=== PATIENT | female | born 1985 | race Hispanic/Latino ===

== ENCOUNTER 2017-06-25 11:15 | Emergency (ER) | payer MEDICAID, OTHER ==
[~2017-06-25 11:15] MED LIST: PNV91TAB6 PO
[2017-06-25] MEDS ORDERED: ACETAMINOPHEN EXTRA STRENGTH 500 MG TABLET ONE (11:34)
[2017-06-25 12:42] LABS: APPEARANCE,URINE Cloudy (CLEAR); BILIRUBIN,URINE Negative (NEGATIVE); COLOR,URINE Yellow (YELLOW); GLUCOSE, URINE (UA) Negative (NEGATIVE); KETONES,URINE Trace mg/dL (NEGATIVE); LEUKOCYTE ESTERASE ,URINE Large (NEGATIVE); NITRATE,URINE Positive (NEGATIVE); OCCULT BLOOD,URINE Small (NEGATIVE); PH,URINE 5.5 (5.0-8.0); PROTEIN,URINE POS 1+ (NEGATIVE); UROBILINOGEN,URINE 0.2 mg/dL (0.2-1.0)
[2017-06-25 12:44] LABS: HCG,QUAL RESULT NEGATIVE (NEGATIVE)
[2017-06-25 12:49] LABS: BACTERIA,URINE Few /HPF (None Seen); SQUAMOUS EPITHELIAL CELL,UR Rare /LPF (0-2); WBC,URINE TNTC /HPF (0-1)
[2017-06-25] MEDS ORDERED: CEPHALEXIN 500 MG CAPSULE ONE (12:53)
== END 2017-06-25 13:30 | disposition home or self-care (01) ==
LOC: EDH 11:15
DX: N39.0 Urinary tract infection, site not specified (principal); Z87.442 Personal history of urinary calculi; V49.59XA Passenger injured in collision with other motor vehicles in traffic accident, initial encounter; Y93.89 Activity, other specified; Y92.89 Other specified places as the place of occurrence of the external cause; Y99.8 Other external cause status
CPT/HCPCS: 81001; 81025; 87088; 87186

== ENCOUNTER 2017-07-11 17:59 | Emergency (ER) | payer MEDICAID, OTHER ==
[2017-07-11 18:32] LABS: APPEARANCE,URINE CLOUDY (CLEAR); BILIRUBIN,URINE NEGATIVE (NEGATIVE); COLOR,URINE YELLOW (YELLOW); GLUCOSE, URINE (UA) NEGATIVE (NEGATIVE); KETONES,URINE NEGATIVE (NEGATIVE); LEUKOCYTE ESTERASE ,URINE LARGE (NEGATIVE); NITRATE,URINE NEGATIVE (NEGATIVE); OCCULT BLOOD,URINE SMALL (NEGATIVE); PROTEIN,URINE TRACE (NEGATIVE); UROBILINOGEN,URINE 0.2 mg/dL (0.2-1.0)
[2017-07-11 18:40] LABS: BACTERIA,URINE Few /HPF (None Seen); SQUAMOUS EPITHELIAL CELL,UR Few /HPF (0-2); WBC,URINE 26-50 /HPF (0-1)
[2017-07-11 20:11] LABS: BASOPHILS % (AUTO) 0.9 % (0.0-5.0); EOSINOPHILS % (AUTO) 5.2 % (0.0-8.0); HEMATOCRIT 43.7 % (36-48); LYMPHOCYTES % (AUTO) 25.3 % (21.0-51.0); MEAN CORPUSCULAR HEMOGLOBIN 30.6 pg (27.0-33.0); MEAN CORPUSCULAR HGB CONC 34.6 g/dL (32.0-36.0); MEAN CORPUSCULAR VOLUME 88.3 fL (79-99); MONOCYTES % (AUTO) 7.2 % (3.0-13.0); NEUTROPHILS % (AUTO) 61.4 % (40.0-77.0); PLATELET COUNT (AUTO) 276 K/uL (130-400); RED BLOOD CELL COUNT(AUTO) 4.95 MIL/uL (4.00-5.50); RED CELL DISTRIBUTION WIDTH 14.7 % (11.0-15.5); WHITE BLOOD COUNT (AUTO) 9.9 K/uL (4.8-10.8)
[2017-07-11 20:20] LABS: CREATININE 0.9 mg/dL (0.5-1.5); POTASSIUM 3.9 mmol/L (3.5-5.1)
[2017-07-11 20:24] LABS: ALBUMIN 4.1 g/dL (3.5-5.0); BILIRUBIN,DIRECT 0.1 mg/dL (0.0-0.3); BILIRUBIN,TOTAL 0.4 mg/dL (0.2-1.0); TOTAL PROTEIN, SERUM 8.8 g/dL (6.0-8.3)
== END 2017-07-11 21:33 | disposition home or self-care (01) ==
LOC: EDH 17:59
DX: T83.84XA Pain due to genitourinary prosthetic devices, implants and grafts, initial encounter (principal); Z87.442 Personal history of urinary calculi
CPT/HCPCS: 36415; 80048; 80076; 81001; 81025; 83690; 85025

== ENCOUNTER 2017-07-14 16:48 | Emergency (ER) | payer MEDICAID, OTHER ==
[2017-07-14 17:55] LABS: BASOPHILS % (AUTO) 0.8 % (0.0-5.0); EOSINOPHILS % (AUTO) 3.9 % (0.0-8.0); HEMATOCRIT 38.5 % (36-48); LYMPHOCYTES % (AUTO) 23.4 % (21.0-51.0); MEAN CORPUSCULAR HEMOGLOBIN 30.6 pg (27.0-33.0); MEAN CORPUSCULAR VOLUME 87.2 fL (79-99); MONOCYTES % (AUTO) 7.5 % (3.0-13.0); NEUTROPHILS % (AUTO) 64.4 % (40.0-77.0); NUCLEATED RED BLOOD CELLS 0.1 % (0.0-0.19); PLATELET COUNT (AUTO) 249 K/uL (130-400); RED BLOOD CELL COUNT(AUTO) 4.42 MIL/uL (4.00-5.50); RED CELL DISTRIBUTION WIDTH 14.6 % (11.0-15.5); WHITE BLOOD COUNT (AUTO) 8.4 K/uL (4.8-10.8)
[2017-07-14 18:03] LABS: APPEARANCE,URINE CLOUDY (CLEAR); BILIRUBIN,URINE NEGATIVE (NEGATIVE); COLOR,URINE YELLOW (YELLOW); GLUCOSE, URINE (UA) NEGATIVE (NEGATIVE); KETONES,URINE NEGATIVE (NEGATIVE); LEUKOCYTE ESTERASE ,URINE LARGE (NEGATIVE); NITRATE,URINE NEGATIVE (NEGATIVE); OCCULT BLOOD,URINE MODERATE (NEGATIVE); PROTEIN,URINE 100 (NEGATIVE); UROBILINOGEN,URINE 0.2 mg/dL (0.2-1.0)
[2017-07-14 18:03] LABS: CREATININE 0.9 mg/dL (0.5-1.5); POTASSIUM 3.8 mmol/L (3.5-5.1)
[2017-07-14 18:28] LABS: BACTERIA,URINE Moderate /HPF (None Seen)
[2017-07-14 18:29] LABS: AMORPHOUS SEDIMENT,UR Few /LPF (None Seen); SQUAMOUS EPITHELIAL CELL,UR Rare /HPF (0-2)
== END 2017-07-14 20:44 | disposition home or self-care (01) ==
LOC: EDH 16:48
DX: T83.84XA Pain due to genitourinary prosthetic devices, implants and grafts, initial encounter (principal); N30.90 Cystitis, unspecified without hematuria; Z87.442 Personal history of urinary calculi; Z90.49 Acquired absence of other specified parts of digestive tract; Z98.890 Other specified postprocedural states
CPT/HCPCS: 36415; 74176; 80048; 81001; 81025; 85025

== ENCOUNTER 2017-08-29 19:24 | Emergency (ER) | payer MEDICAID, OTHER | END 2017-08-29 21:16 | disposition home or self-care (01) | LOC: EDH 19:24 | DX: Z43.6 Encounter for attention to other artificial openings of urinary tract (principal); Z87.442 Personal history of urinary calculi; Z90.49 Acquired absence of other specified parts of digestive tract | CPT/HCPCS: 99281 ==

== ENCOUNTER 2018-02-20 08:06 | Emergency (ER) | payer OTHER ==
[2018-02-20 09:02] LABS: APPEARANCE,URINE TURBID (CLEAR); BILIRUBIN,URINE NEGATIVE (NEGATIVE); COLOR,URINE YELLOW (YELLOW); GLUCOSE, URINE (UA) NEGATIVE (NEGATIVE); KETONES,URINE NEGATIVE (NEGATIVE); LEUKOCYTE ESTERASE ,URINE MODERATE (NEGATIVE); NITRATE,URINE POSITIVE (NEGATIVE); OCCULT BLOOD,URINE LARGE (NEGATIVE); PROTEIN,URINE >=300 (NEGATIVE); UROBILINOGEN,URINE 0.2 mg/dL (0.2-1.0)
[2018-02-20 09:10] LABS: AMPHET/METH SCREEN,URINE NEGATIVE (NEGATIVE); BARBITURATE SCREEN, URINE NEGATIVE (NEGATIVE); BENZODIAZEPINES SCREEN,URINE NEGATIVE (NEGATIVE); CANNABINOID SCREEN,URINE POSITIVE (NEGATIVE); COCAINE SCREEN,URINE NEGATIVE (NEGATIVE); OPIATE SCREEN,URINE NEGATIVE (NEGATIVE); PHENCYCLIDINE SCREEN,URINE NEGATIVE (NEGATIVE)
[2018-02-20 09:17] LABS: BACTERIA,URINE Moderate /HPF (None Seen); SQUAMOUS EPITHELIAL CELL,UR Rare /HPF (0-2); WBC,URINE TNTC /HPF (0-1)
[2018-02-20 09:19] LABS: HCG,QUAL RESULT NEGATIVE (NEGATIVE)
== END 2018-02-20 09:40 | disposition home or self-care (01) ==
LOC: EDH 08:06
DX: N39.0 Urinary tract infection, site not specified (principal); F12.10 Cannabis abuse, uncomplicated; Z87.442 Personal history of urinary calculi
CPT/HCPCS: 80305; 81001; 81025

== ENCOUNTER 2018-05-25 13:19 | Inpatient (IN) | payer MEDICAID, OTHER ==
[~2018-05-25] VITALS: Ht 154.9 cm; Wt 73.9 kg
[2018-05-25] MEDS ORDERED: ONDANSETRON HCL 4 MG/2 ML VIAL ONE (15:24)
[2018-05-25] MEDS ORDERED: SODIUM CHLORIDE 0.9% 1000ML 1,000 ML IV ONE (15:24)
[2018-05-25] MEDS ORDERED: KETOROLAC TROMETHAMINE 30MG/ML ONE (15:24)
[2018-05-25 15:26] LABS: BILIRUBIN,URINE Small (NEGATIVE); COLOR,URINE Dark Yellow (YELLOW); GLUCOSE, URINE (UA) Negative (NEGATIVE); KETONES,URINE 15 mg/dL (NEGATIVE); LEUKOCYTE ESTERASE ,URINE Large (NEGATIVE); NITRATE,URINE Negative (NEGATIVE); OCCULT BLOOD,URINE Nonhemolyzed Trace (NEGATIVE); PH,URINE 6.5 (5.0-8.0); PROTEIN,URINE POS 1+ (NEGATIVE)
[2018-05-25 15:26] LABS: BASOPHILS % (AUTO) 0.4 % (0.0-5.0); EOSINOPHILS % (AUTO) 0.5 % (0.0-8.0); HEMATOCRIT 39.2 % (36-48); LYMPHOCYTES % (AUTO) 6.6 % (21.0-51.0); MEAN CORPUSCULAR HEMOGLOBIN 29.7 pg (27.0-33.0); MEAN CORPUSCULAR HGB CONC 33.5 g/dL (32.0-36.0); MEAN CORPUSCULAR VOLUME 88.5 fL (79-99); MONOCYTES % (AUTO) 7.6 % (3.0-13.0); NEUTROPHILS % (AUTO) 84.9 % (40.0-77.0); PLATELET COUNT (AUTO) 310 K/uL (130-400); RED BLOOD CELL COUNT(AUTO) 4.43 MIL/uL (4.00-5.50); RED CELL DISTRIBUTION WIDTH 13.4 % (11.0-15.5); WHITE BLOOD COUNT (AUTO) 12.8 K/uL (4.8-10.8)
[2018-05-25 15:33] LABS: APPEARANCE,URINE SLIGHTLY CLOUDY (CLEAR); HCG,QUAL RESULT NEGATIVE (NEGATIVE)
[2018-05-25 15:48] LABS: CREATININE 0.8 mg/dL (0.5-1.5); POTASSIUM 3.9 mmol/L (3.5-5.1)
[2018-05-25 15:52] LABS: BACTERIA,URINE Few /HPF (None Seen)
[2018-05-25 15:53] LABS: SQUAMOUS EPITHELIAL CELL,UR Few /HPF (0-2)
[2018-05-25 15:56] LABS: ALBUMIN 3.6 g/dL (3.5-5.0); BILIRUBIN,TOTAL 0.5 mg/dL (0.2-1.0); TOTAL PROTEIN, SERUM 8.8 g/dL (6.0-8.3)
[2018-05-25] MEDS ORDERED: ZOSYN 3.375GM+NS 50ML 50 ML IV ONE (17:01)
[2018-05-25] MEDS ORDERED: SODIUM CHLORIDE 0.9% 100 ML IV ONE (17:02)
[2018-05-25] MEDS ORDERED: CEFTRIAXONE SODIUM 1 GM ONE (17:02)
[2018-05-25 18:28] VITALS: BP 118/78
[2018-05-25 20:00] VITALS: BP 128/76
[2018-05-25] MEDS: LEVOFLOXACIN 750 MG/D5W 150 ML 150 ML IV SCH (20:51)
[2018-05-25 23:48] VITALS: BP 108/60
[2018-05-26 04:00] VITALS: BP 110/63
[2018-05-26] MEDS: HYDROMORPHONE 1 MG/1 ML AMP IVP PRN ×3 (04:20→20:32)
[2018-05-26 05:52] LABS: HEMATOCRIT 33.3 % (36-48); MEAN CORPUSCULAR HEMOGLOBIN 30.1 pg (27.0-33.0); MEAN CORPUSCULAR HGB CONC 33.7 g/dL (32.0-36.0); MEAN CORPUSCULAR VOLUME 89.3 fL (79-99); PLATELET COUNT (AUTO) 265 K/uL (130-400); RED BLOOD CELL COUNT(AUTO) 3.73 MIL/uL (4.00-5.50); RED CELL DISTRIBUTION WIDTH 13.7 % (11.0-15.5); WHITE BLOOD COUNT (AUTO) 6.3 K/uL (4.8-10.8)
[2018-05-26 06:14] LABS: CREATININE 0.8 mg/dL (0.5-1.5); POTASSIUM 3.7 mmol/L (3.5-5.1)
[2018-05-26 07:35] LABS: EOSINOPHILS % (MANUAL) 2 % (1-6); LYMPHOCYTES % (MANUAL) 12 % (22-44); MONOCYTES % (MANUAL) 9 % (2-9); SEGMENTED NEUTROPHILS % 77 % (40-70)
[2018-05-26 07:38] LABS: MAN.DIFF COMMENT-IMPRESSION MANUAL DIFFERENTIAL; PLATELET MORPHOLOGY COMMENT ADEQUATE
[2018-05-26 08:29] VITALS: BP 90/58
--- NOTE | 2018-05-26 10:00 | NUR ---
CALLED DR. FIELDS'S OFFICE. SPOKE TO GRICEL, WHO IS GOING TO PAGE DR. FIELDS . WAITING FOR DR. FIELDS TO CALL BACK.
[2018-05-26 11:46] VITALS: BP 120/76
[2018-05-26] MEDS: ONDANSETRON HCL 4 MG/2 ML VIAL IVP PRN (13:20)
--- NOTE | 2018-05-26 15:00 | NUR ---
TRANSFER FROM [facility] RECEIVED PT BY WHEELCHAIR FROM 4TH FLOOR IN STABLE CONDITION. PT ASSISTED INTO BED. PT HAD NO COMPLAINTS AT THIS TIME. WILL MONITOR THROUGHOUT REMAINDER OF SHIFT.
[2018-05-26] MEDS: SODIUM CHLORIDE 0.9% 1000ML 1,000 ML IV SCH (15:07)
[2018-05-26 15:14] VITALS: BP 114/78
--- NOTE | 2018-05-26 18:45 | NUR ---
PHYSICIAN ROUNDING DR. FIELDS AT BEDSIDE TO ASSESS AND TALK TO PT. NEW ORDERS RECEIVED.
[2018-05-26 19:25] VITALS: BP 109/70
--- NOTE | 2018-05-26 20:35 | NUR ---
Urine; Urine has a strong odor colored pale yellow cloudy thick slimy urine.
[2018-05-26] MEDS: LEVOFLOXACIN 750 MG/D5W 150 ML 150 ML IV SCH (21:25)
[2018-05-26 23:37] VITALS: BP 101/63
[2018-05-27] VITALS (10 sets, daily range): BP systolic 102–139; BP diastolic 53–83
[2018-05-27] MEDS: ONDANSETRON HCL 4 MG/2 ML VIAL IVP PRN ×4 (01:05→19:28)
[2018-05-27] MEDS: HYDROMORPHONE 1 MG/1 ML AMP IVP PRN ×4 (01:09→19:29)
--- NOTE | 2018-05-27 01:09 | NUR ---
Patient: Patient claimed, I felt so nauseated and my pain started again at my right side flank area. Zofran 4 mg SIVP and Dilaudid 1 mg SIVP given PRN for nausea and pain.
[2018-05-27 07:46] LABS: INR 1.07 (0.85-1.15); PROTHROMBIN TIME 11.2 SEC (9.6-11.6)
[2018-05-27] MEDS ORDERED: MIDAZOLAM HCL 1 MG/ML 2ML VIAL ONE (09:34)
[2018-05-27] MEDS ORDERED: IODIXANOL 320 MG/ML 100 ML VIAL ONE (09:34)
[2018-05-27] MEDS ORDERED: LIDOCAINE HCL 1% MDV 50ML VIAL ONE (09:35)
[2018-05-27] MEDS ORDERED: FENTANYL CITRATE PF 50 MCG/1 ML 2ML VIAL ONE (09:35)
--- NOTE | 2018-05-27 09:50 | NUR ---
PT TRANSFERRED TO IR FOR RIGHT NEPHROSTOMY TUBE PLACEMENT.
--- NOTE | 2018-05-27 10:28 | NUR ---
DC PLAN VISITED WITH PATIENT. PATIENT LIVES ALONE. INDEPENDENT ABLE TO PERFORM ADL'S. PATIENT HAS NO SERVICES OR DME'S. FEELS SAFE TO RETURN HOME. Addendum: 05/28/18 at 1029 by FLORIDA GUAN RN CM Amended: Links added.
--- NOTE | 2018-05-27 11:20 | NUR ---
RECEIVED PT FROM IR FROM POST NEPHROSTOMY TUBE PLACEMENT. PT IN STABLE CONDITION WITHOUT ANY COMPLAINTS.
[2018-05-27] MEDS: SODIUM CHLORIDE 0.9% 1000ML 1,000 ML IV SCH (11:30)
--- NOTE | 2018-05-27 11:40 | NUR ---
PT C/O FEELING COLD AFTER PROCEDURE. WARMING BLANKET BROUGHT TO PT. PT STATED WAS STARTING TO FEEL ANXIOUS. PULSE BECAME ELEVATED TO 140'S AND O2 SATS TO 80'S. PT INSTRUCTED TO BREATHE CALMLY. O2 AT 2 LITERS BY NASAL CANNULA GIVEN. PT STATED WAS STARTING TO FEEL BETTER. PULSE LOWERED TO 100 AND PT STATED WAS ABLE TO RELAX. PT STATED, "SOMETIMES I GET ANXIOUS." PT ENCOURAGED TO CALL FOR ASSISTANCE IF NEEDING HELP. VERBALIZED UNDERSTANDING. CALL LIGHT WITHIN REACH. WILL CONTINUE TO MONITOR.
--- NOTE | 2018-05-27 13:00 | NUR ---
PT ASSISTED TO BATHROOM TO VOID. VOIDED WITHOUT DIFFICULTY. URINE CLOUDY AND RED-TINGED WITH PUS PRESENT. PT DENIED PAIN AND HAD NO COMPLAINTS.
--- NOTE | 2018-05-27 16:00 | NUR ---
PT STATED WAS FEELING BETTER AND HAD NO COMPLAINTS AT THIS TIME.
[2018-05-27] MEDS: LEVOFLOXACIN 750 MG/D5W 150 ML 150 ML IV SCH (21:20)
[2018-05-28] VITALS (7 sets, daily range): BP systolic 104–130; BP diastolic 71–78
--- NOTE | 2018-05-28 00:05 | NUR ---
COMMUNICATION: Dr. Oliveros's answering service called informed that I need to refer Patient Cassy Varner for having a temperature of 101.6. She the answering service claimed, " Ok I will page Dr. Oliveros."
--- NOTE | 2018-05-28 00:10 | NUR ---
Wet towels: Wet towels applied to forehead and both axilla to lower the temperature. Nursing care provided patient claimed no pain this time.
--- NOTE | 2018-05-28 01:15 | NUR ---
Called: I called the answering service again informing that Dr. Oliveros did not call back patient had no Tylenol ordered and her Temperature still 101.3 after an hour. She claimed, " Dr. Oliveros did not answer."
--- NOTE | 2018-05-28 01:30 | NUR ---
Charge Nurse Francie Srivastava informed: That this patient had a temperature of 101.6 at 0005 and 101.3 after an hour [address] Dr[address] Oliveros but waiting for him to call back. Informed that I need to call electrician apprentice powerhouse. She said , " ask if whoever is physician relations manager for him."
--- NOTE | 2018-05-28 01:32 | NUR ---
Body And Fender Mechanic called: Informed that I tried to call Dr. Oliveros but he never called me back. Patient had a Fever of 101.6 and 101.3 she claimed, " Dr. Oliveros usually call at 0500 in the morning just order Tylenol extra strength 1000 mg one time dose and informed him in AM. Order was entered. Addendum: 05/28/18 at 0159 by DIANNA MYERS RN RN Error.
--- NOTE | 2018-05-28 01:32 | NUR ---
C4 Planner: C4 Planner Guillermina Meng called Informed Dr. Oliveros was called waiting to call Back patient temperature of 101.6 and 101.3. claimed, " Dr. Oliveros will usually call at 0500 inform him and asked for Tylenol order."
[2018-05-28] MEDS ORDERED: ACETAMINOPHEN EXTRA STRENGTH 500 MG TABLET PO ONE (01:45)
--- NOTE | 2018-05-28 01:45 | NUR ---
Tylenol: Tylenol extra strength not given error not given.
--- NOTE | 2018-05-28 02:15 | NUR ---
Temperature rechecked: T- 100.2 cold packs aon forehead continued, room temperature lowered and covered with white 1 thin blanket only. Patient advice to shower but claimed, " not now maybe in the morning."
[2018-05-28] MEDS: ONDANSETRON HCL 4 MG/2 ML VIAL IVP PRN ×2 (06:16→11:41)
[2018-05-28] MEDS: HYDROMORPHONE 1 MG/1 ML AMP IVP PRN ×3 (06:18→23:28)
--- NOTE | 2018-05-28 06:45 | NUR ---
Dr. Oliveros: Tried to call Dr. Oliveros [phone] answering service answered claimed, " He did not answer will try to contact him." at 0655 Dr. Jean-Baptiste contacted with [phone] phone not working.
--- NOTE | 2018-05-28 07:25 | NUR ---
Communication: Dr. Oliveros called back received orders to do CBC and give Tylenol 650 mg Tablets PRN for Pain and Fever 101 and above.
[2018-05-28] MEDS ORDERED: ACETAMINOPHEN 325 MG TAB PO PRN (07:30)
[2018-05-28 07:43] LABS: MEAN CORPUSCULAR HEMOGLOBIN 29.8 pg (27.0-33.0); MEAN CORPUSCULAR HGB CONC 33.3 g/dL (32.0-36.0); MEAN CORPUSCULAR VOLUME 89.6 fL (79-99); PLATELET COUNT (AUTO) 196 K/uL (130-400); RED BLOOD CELL COUNT(AUTO) 3.69 MIL/uL (4.00-5.50); RED CELL DISTRIBUTION WIDTH 13.1 % (11.0-15.5)
--- NOTE | 2018-05-28 08:45 | NUR ---
ASSESSED AND DRAINED 40CC FROM NEPHROSTOMY TUBE THAT WAS WHITISH IN COLOR AND THICK PURULENT FLUID. ABDOMEN IS SOFT AND C/O TENDERNESS TO RIGHT FLANK AREA.
[2018-05-28] MEDS: SODIUM CHLORIDE 0.9% 1000ML 1,000 ML IV SCH (08:57)
--- NOTE | 2018-05-28 11:40 | NUR ---
C/O FEELING NAUSEATED AND WAS GIVEN ZOFRAN. VERBALIZES HAVING GOTTEN NAUSEATED AFTER GETTING TYLENOL.
--- NOTE | 2018-05-28 14:15 | NUR ---
RADIOLOGY CALLED AND INDICATED WOULD BE COMING FOR PATIENT. PIV CONVERTED TO SALINE FOR TRANSFER AND PATIENT UP AND VOIDED 400CC OF YELLOW URINE. NO STONES NOTED DURING STRAINING OF URINE. 45 CC OF WHITISH PURULENT DRAINAGE DRAINED FROM NEPHROSTOMY TUBE. DR. THORNTON CAME IN AT THIS TIME TO ROUND ON PATIENT AND ONLY LEFT ORDERS FOR CBC AND BMP IN A.M. AT 0400.
--- NOTE | 2018-05-28 14:30 | NUR ---
PATIENT WAS TAKEN VIA W/C TO RADIOLOGY FOR NUCLEAR RENAL SCAN.
--- NOTE | 2018-05-28 15:45 | NUR ---
PATIENT BACK FROM RENAL SCAN AND WAS AGAIN PLACED BACK ON PIV AT 50CC/HR.
--- NOTE | 2018-05-28 18:00 | NUR ---
APPEARS COMFORTABLE AND STATES DILAUDID HELPED WITH DISCOMFORT. 10CC DISCARDED FROM NEPHROSTOMY TUBE AND PATIENT INDICATED THAT WHEN TAKEN TO NUCLEAR RENAL SCAN THE TECH DRAINED ABOUT 15CC FROM NEPHROSTOMY TUBE.
[2018-05-28] MEDS: LEVOFLOXACIN 750 MG/D5W 150 ML 150 ML IV SCH (20:40)
--- NOTE | 2018-05-29 03:00 | NUR ---
PATIENT STARTED ON HER MENSES, UP TP BR Addendum: 05/29/18 at 0405 by JERED GARDNER LVN Amended: Links added.
[2018-05-29 04:02] VITALS: BP 123/67
[2018-05-29 05:57] LABS: BASOPHILS % (AUTO) 0.6 % (0.0-5.0); EOSINOPHILS % (AUTO) 4.3 % (0.0-8.0); HEMATOCRIT 31.7 % (36-48); LYMPHOCYTES % (AUTO) 8.8 % (21.0-51.0); MEAN CORPUSCULAR HEMOGLOBIN 30.1 pg (27.0-33.0); MEAN CORPUSCULAR VOLUME 88.4 fL (79-99); MONOCYTES % (AUTO) 14.2 % (3.0-13.0); NEUTROPHILS % (AUTO) 72.1 % (40.0-77.0); NUCLEATED RED BLOOD CELLS 0.1 % (0.0-0.19); PLATELET COUNT (AUTO) 187 K/uL (130-400); RED BLOOD CELL COUNT(AUTO) 3.59 MIL/uL (4.00-5.50); RED CELL DISTRIBUTION WIDTH 13.2 % (11.0-15.5); WHITE BLOOD COUNT (AUTO) 6.2 K/uL (4.8-10.8)
[2018-05-29 06:23] LABS: CREATININE 0.8 mg/dL (0.5-1.5); POTASSIUM 3.7 mmol/L (3.5-5.1)
[2018-05-29 07:35] VITALS: BP 124/72
--- NOTE | 2018-05-29 08:05 | NUR ---
Patient assessed and no drainage noted to nephrostomy drain. Patient denies c/o pain and will medicate with dilaudid. Piv infusing at 50cc/hr and iv site wnl.
[2018-05-29] MEDS: SODIUM CHLORIDE 0.9% 1000ML 1,000 ML IV SCH (08:10)
[2018-05-29] MEDS: HYDROMORPHONE 1 MG/1 ML AMP IVP PRN ×2 (09:14→20:54)
[2018-05-29 11:44] VITALS: BP 127/69
--- NOTE | 2018-05-29 14:30 | NUR ---
25cc drained from nephrostomy tube that is whitish in color and slightly thick.
[2018-05-29 15:42] VITALS: BP 142/86
--- NOTE | 2018-05-29 16:20 | NUR ---
Dr. Oliveros's office called after attempting to call his pager and getting no response. Talked to executive secretary social welfare and informed on need to talk to Dr. Oliveros regarding his patient. Info on patient requested to relay message to Dr. Oliveros and return number given.
--- NOTE | 2018-05-29 17:35 | NUR ---
No rounding on patient done and Dr. Oliveros never returned call. Office closed.
[2018-05-29] MEDS ORDERED: DiphenhydrAMINE HCL 50 MG/ML VIAL IVP PRN (17:45)
[2018-05-29] MEDS ORDERED: NALOXONE HCL 0.4 MG/1 ML ML IVP PRN (17:45)
[2018-05-29] MEDS ORDERED: MORPHINE-NS 50 MG/50 ML 50 ML IV PRN (17:45)
[2018-05-29] MEDS ORDERED: ONDANSETRON HCL 4 MG/2 ML VIAL IVP PRN (17:45)
[2018-05-29] MEDS ORDERED: SODIUM CHLORIDE 0.9% 1000ML 1,000 ML IV PRN (17:45)
[2018-05-29] MEDS ORDERED: DIPHENHYDRAMINE HCL 25 MG CAPSULE PO PRN (17:45)
[2018-05-29 19:14] VITALS: BP 112/65
[2018-05-29] MEDS: LEVOFLOXACIN 750 MG/D5W 150 ML 150 ML IV SCH (20:46)
--- NOTE | 2018-05-29 23:00 | NUR ---
STATUS PT WAS MEDICATED W/ DILAUDID SLOW IV PUSH, THEN ASKED FOR SANDWICH, HAD LARGE EMESIS AFTER EATING Addendum: 05/30/18 at 0156 by JERED GARDNER LVN Amended: Links added.
[2018-05-30 00:21] VITALS: BP_SYST 118; BP_SYST 127; BP_DIAS 76; BP_DIAS 80
[2018-05-30] MEDS: SODIUM CHLORIDE 0.9% 1000ML 1,000 ML IV SCH (02:24)
[2018-05-30 04:11] VITALS: BP 110/72
[2018-05-30 07:35] VITALS: BP 119/85
--- NOTE | 2018-05-30 08:00 | NUR ---
ASSESSED PATIENT AND C/O HAVING EMESIS X 2 AND STATES ALSO HAD GREENISH BM. PIV INFUSING WITH NS AT 50CC/HR AND IS PATENT AND NO EDEMA OR REDNESS NOTED TO SITE.
[2018-05-30 11:44] VITALS: BP 118/78
--- NOTE | 2018-05-30 13:00 | NUR ---
NEPHROSTOMY TUBE WAS DRAINED FOR 30CC OF WHITISH FLUID. DENIES PAIN.
[2018-05-30] MEDS: ONDANSETRON HCL 4 MG/2 ML VIAL IVP PRN (13:17)
[2018-05-30] MEDS: HYDROMORPHONE 1 MG/1 ML AMP IVP PRN (13:39)
[2018-05-30 15:32] VITALS: BP 115/82
--- NOTE | 2018-05-30 16:30 | NUR ---
DR. MATT THORNTON'S OFFICE CALLED AND HAD ANSWERING SERVICE. SPOKE TO BULL AND VERBALIZED WOULD HAVE DR. THORNTON RETURN CALL. MADE AWARE OF IMPORTANCE TO HAVE HIM RETURN CALL.
--- NOTE | 2018-05-30 17:00 | NUR ---
DR. THORNTON RETURNED CALL AND INDICATED FOR PATIENT TO CALL AND MAKE FOLLOW UP APPOINTMENT TO SEE HIM THIS WEEK IN HIS CLINIC. PATIENT IS ALSO SUPPOSED TO CALL DR. FIELDS'S OFFICE FOR FOLLOW UP IN ONE WEEK FOR CONTINUED CARE OF NEPHROSTOMY TUBE. PATIENT MADE AWARE OF DR. THORNTON RETURNING CALL AND VERBALIZED UNDERSTANDING NEED TO CALL FOR FOLLOW UP APPOINTMENTS.
--- NOTE | 2018-05-30 18:00 | NUR ---
DISCHARGE INSTRUCTIONS GIVEN AND PATIENT VERBALIZED UNDERSTANDING CARE OF NEPHROSTOMY TUBE AND DRAINING SINCE SHE HAD ONE BEFORE. TUBE WAS DRAINED FOR 15CC OF MILKY COLOR FLUID. PIV WAS REMOVED AND SITE IS WNL. NO EDEMAN OR REDNESS NOTED TO SITE. Addendum: 05/30/18 at 1833 by ESSIE BELTRAN RN PATIENT WAS OFFERED FLU VACCINE AND INDICATED NOT WANTING TO BE POKED ANYMORE. REFUSED VACCINE FOR FLU.
--- NOTE | 2018-05-30 18:30 | NUR ---
PATIENT WAS TAKEN VIA W/C TO FAMILY VEHICLE AND WAS DISCHARGED TO HER SIGNIFICANT OTHER. PATIENT STABLE AND TOLERATING ACTIVITY VERY WELL.
== END 2018-05-30 18:30 | disposition home or self-care (01) | DRG 690 ==
LOC: EDH 13:19 → EDHIP 13:20 → 4CH 17:58 → WSH 05-26 15:10
PROVIDERS: ADMIT Family Medicine; ATTEND Family Medicine
PROC: 0T9030Z Drainage of Right Kidney with Drainage Device, Percutaneous Approach (ICD-10-PCS; principal; 2018-05-27)
PROC: BT111ZZ Fluoroscopy of Right Kidney using Low Osmolar Contrast (ICD-10-PCS; 2018-05-27)
PROC: BT41ZZZ Ultrasonography of Right Kidney (ICD-10-PCS; 2018-05-27)
DX: N13.6 Pyonephrosis (principal); N28.89 Other specified disorders of kidney and ureter; Z91.19 Patient's noncompliance with other medical treatment and regimen; Z90.49 Acquired absence of other specified parts of digestive tract
CPT/HCPCS: 36415; 50432; 74177; 78700; 80048; 80053; 81001; 81025; 85025; 85027; 85610; 87040; 87088; 99156; 99157; A9562; C1729; C1769; C1894; G0378; J0696; J1170; J1644; J1885; J1956; J2250; J2405; J2543; J3010; J3490; J7030; Q9967

== ENCOUNTER 2018-06-24 00:27 | Emergency (ER) | payer MEDICAID, OTHER ==
[2018-06-24 01:03] LABS: APPEARANCE,URINE TURBID (CLEAR); BILIRUBIN,URINE NEGATIVE (NEGATIVE); COLOR,URINE YELLOW (YELLOW); GLUCOSE, URINE (UA) NEGATIVE (NEGATIVE); KETONES,URINE NEGATIVE (NEGATIVE); LEUKOCYTE ESTERASE ,URINE LARGE (NEGATIVE); NITRATE,URINE NEGATIVE (NEGATIVE); OCCULT BLOOD,URINE LARGE (NEGATIVE); PH,URINE 7.5 (5.0-8.0); PROTEIN,URINE 100 (NEGATIVE)
[2018-06-24 01:06] LABS: BASOPHILS % (AUTO) 0.6 % (0.0-5.0); HEMATOCRIT 35.2 % (36-48); LYMPHOCYTES % (AUTO) 13.5 % (21.0-51.0); MEAN CORPUSCULAR HEMOGLOBIN 29.8 pg (27.0-33.0); MEAN CORPUSCULAR VOLUME 87.5 fL (79-99); MONOCYTES % (AUTO) 11.9 % (3.0-13.0); PLATELET COUNT (AUTO) 320 K/uL (130-400); RED BLOOD CELL COUNT(AUTO) 4.03 MIL/uL (4.00-5.50); WHITE BLOOD COUNT (AUTO) 8.5 K/uL (4.8-10.8)
[2018-06-24 01:15] LABS: BACTERIA,URINE Moderate /HPF (None Seen); WBC,URINE >100 /HPF (0-1)
[2018-06-24 01:24] LABS: CREATININE 0.9 mg/dL (0.5-1.5); POTASSIUM 3.6 mmol/L (3.5-5.1)
[2018-06-24] MEDS ORDERED: ONDANSETRON HCL 4 MG/2 ML VIAL ONE (01:26)
[2018-06-24] MEDS ORDERED: MORPHINE SULFATE 4 MG/1ML SYG ONE (01:26)
[2018-06-24] MEDS ORDERED: CEFTRIAXONE SODIUM 1 GM ONE (01:26)
[2018-06-24 01:29] LABS: ALBUMIN 3.1 g/dL (3.5-5.0); BILIRUBIN,TOTAL 0.2 mg/dL (0.2-1.0); TOTAL PROTEIN, SERUM 8.7 g/dL (6.0-8.3)
[2018-06-24] MEDS ORDERED: KETOROLAC TROMETHAMINE 30MG/ML ONE (03:25)
== END 2018-06-24 03:51 | disposition home or self-care (01) ==
LOC: EDH 00:27
DX: N39.0 Urinary tract infection, site not specified (principal); F12.10 Cannabis abuse, uncomplicated; Z90.49 Acquired absence of other specified parts of digestive tract; Z87.442 Personal history of urinary calculi
CPT/HCPCS: 36415; 80053; 81001; 81025; 85025; 87077; 87088; 87186; 96374; 96375; 99283; A4218; J0696; J1885; J2270; J2405

== ENCOUNTER 2019-03-09 11:20 | Emergency (ER) | payer MEDICAID, OTHER ==
[2019-03-09 11:49] LABS: APPEARANCE,URINE TURBID (CLEAR); BILIRUBIN,URINE NEGATIVE (NEGATIVE); COLOR,URINE YELLOW (YELLOW); GLUCOSE, URINE (UA) NEGATIVE (NEGATIVE); KETONES,URINE NEGATIVE (NEGATIVE); LEUKOCYTE ESTERASE ,URINE MODERATE (NEGATIVE); NITRATE,URINE NEGATIVE (NEGATIVE); OCCULT BLOOD,URINE MODERATE (NEGATIVE); PROTEIN,URINE 100 mg/dL (NEGATIVE); UROBILINOGEN,URINE 0.2 mg/dL (0.2-1.0)
[2019-03-09 11:53] LABS: HCG,QUAL RESULT NEGATIVE (NEGATIVE)
[2019-03-09 11:56] LABS: BACTERIA,URINE Moderate /HPF (None Seen); SQUAMOUS EPITHELIAL CELL,UR Rare /HPF (0-2); WBC,URINE TNTC /HPF (0-1)
[2019-03-09] MEDS ORDERED: LIDOCAINE HCL-MPF 1% 2ML VIAL ONE (12:19)
[2019-03-09] MEDS ORDERED: CEFTRIAXONE SODIUM 1 GM ONE (12:19)
[2019-03-09] MEDS ORDERED: ONDANSETRON ODT 4 MG TAB ONE (12:20)
== END 2019-03-09 13:07 | disposition home or self-care (01) ==
LOC: EDH 11:20
DX: N10 Acute pyelonephritis (principal); Z90.49 Acquired absence of other specified parts of digestive tract; Z87.442 Personal history of urinary calculi
CPT/HCPCS: 81001; 81025; 87804 ×2; 96372; 99284; J0696; J3490

== ENCOUNTER 2019-08-08 12:16 | Emergency (ER) | payer MEDICAID, OTHER ==
[2019-08-08 12:25] LABS: HCG,QUAL RESULT POSITIVE (NEGATIVE)
[2019-08-08 12:26] LABS: APPEARANCE,URINE Turbid (CLEAR); BILIRUBIN,URINE Negative (NEGATIVE); COLOR,URINE Yellow (YELLOW); GLUCOSE, URINE (UA) Negative (NEGATIVE); KETONES,URINE 40 mg/dL (NEGATIVE); LEUKOCYTE ESTERASE ,URINE Large (NEGATIVE); NITRATE,URINE Negative (NEGATIVE); OCCULT BLOOD,URINE Moderate (NEGATIVE); PH,URINE 6.5 (5.0-8.0); PROTEIN,URINE POS 2+ mg/dL (NEGATIVE)
[2019-08-08] MEDS ORDERED: ONDANSETRON HCL 4 MG/2 ML VIAL ONE (12:31)
[2019-08-08] MEDS ORDERED: MORPHINE SULFATE 4 MG/1ML SYG ONE (12:31)
[2019-08-08 12:34] LABS: BASOPHILS % (AUTO) 0.8 % (0.0-5.0); EOSINOPHILS % (AUTO) 3.1 % (0.0-8.0); HEMATOCRIT 39.5 % (36-48); LYMPHOCYTES % (AUTO) 20.1 % (21.0-51.0); MEAN CORPUSCULAR HEMOGLOBIN 30.1 pg (27.0-33.0); MEAN CORPUSCULAR HGB CONC 34.2 g/dL (32.0-36.0); MEAN CORPUSCULAR VOLUME 88.2 fL (79-99); MONOCYTES % (AUTO) 6.1 % (3.0-13.0); NEUTROPHILS % (AUTO) 69.5 % (40.0-77.0); PLATELET COUNT (AUTO) 241 K/uL (130-400); RED BLOOD CELL COUNT(AUTO) 4.48 MIL/uL (4.00-5.50); RED CELL DISTRIBUTION WIDTH 12.6 % (11.0-15.5); WHITE BLOOD COUNT (AUTO) 7.5 K/uL (4.8-10.8)
[2019-08-08 12:53] LABS: CREATININE 0.7 mg/dL (0.5-1.5); POTASSIUM 3.5 mmol/L (3.5-5.1)
[2019-08-08 12:57] LABS: BILIRUBIN,TOTAL 0.3 mg/dL (0.2-1.0); TOTAL PROTEIN, SERUM 8.1 g/dL (6.0-8.3)
[2019-08-08 13:01] LABS: WBC,URINE Full Field /HPF (0-1)
[2019-08-08 13:06] LABS: BACTERIA,URINE Moderate /HPF (None Seen); RBC,URINE Full Field /HPF (0-1); SQUAMOUS EPITHELIAL CELL,UR None Seen /HPF (0-2)
[2019-08-08] MEDS ORDERED: CEFTRIAXONE SODIUM 1 GM ONE (13:57)
== END 2019-08-08 14:25 | disposition home or self-care (01) ==
LOC: EDH 12:16
DX: O23.41 Unspecified infection of urinary tract in pregnancy, first trimester (principal); Z3A.01 Less than 8 weeks gestation of pregnancy; Z90.49 Acquired absence of other specified parts of digestive tract; Z87.442 Personal history of urinary calculi
CPT/HCPCS: 36415; 76801; 80053; 81001; 81025; 84702; 85025; 87088; 96374; 96375; 99284; J0696; J2270; J2405

== ENCOUNTER 2019-08-29 20:18 | Emergency (ER) | payer OTHER ==
[2019-08-29 20:52] LABS: APPEARANCE,URINE CLOUDY (CLEAR); BILIRUBIN,URINE NEGATIVE (NEGATIVE); COLOR,URINE YELLOW (YELLOW); GLUCOSE, URINE (UA) NEGATIVE (NEGATIVE); KETONES,URINE NEGATIVE (NEGATIVE); LEUKOCYTE ESTERASE ,URINE MODERATE (NEGATIVE); NITRATE,URINE NEGATIVE (NEGATIVE); OCCULT BLOOD,URINE LARGE (NEGATIVE); PROTEIN,URINE 100 mg/dL (NEGATIVE)
[2019-08-29 20:56] LABS: BASOPHILS % (AUTO) 0.9 % (0.0-5.0); EOSINOPHILS % (AUTO) 5.8 % (0.0-8.0); HEMATOCRIT 36.4 % (36-48); MEAN CORPUSCULAR HEMOGLOBIN 30.7 pg (27.0-33.0); MEAN CORPUSCULAR HGB CONC 34.9 g/dL (32.0-36.0); MEAN CORPUSCULAR VOLUME 87.9 fL (79-99); MONOCYTES % (AUTO) 10.7 % (3.0-13.0); NEUTROPHILS % (AUTO) 58.2 % (40.0-77.0); PLATELET COUNT (AUTO) 216 K/uL (130-400); RED BLOOD CELL COUNT(AUTO) 4.14 MIL/uL (4.00-5.50); RED CELL DISTRIBUTION WIDTH 12.6 % (11.0-15.5); WHITE BLOOD COUNT (AUTO) 8.1 K/uL (4.8-10.8)
[2019-08-29 21:05] LABS: BACTERIA,URINE Few /HPF (None Seen); SQUAMOUS EPITHELIAL CELL,UR Rare /HPF (0-2); WBC,URINE >100 /HPF (0-1)
[2019-08-29 21:07] LABS: INR 0.97 (0.85-1.15); PARTIAL THROMBOPLASTIN TIME 28.5 SEC (26.3-35.5); PROTHROMBIN TIME 10.5 SEC (9.6-11.6)
[2019-08-29 21:14] LABS: CREATININE 0.8 mg/dL (0.5-1.5); POTASSIUM 3.7 mmol/L (3.5-5.1)
[2019-08-29 21:40] LABS: BILIRUBIN,TOTAL 0.4 mg/dL (0.2-1.0)
[2019-08-29] MEDS ORDERED: CEFTRIAXONE SODIUM 1 GM ONE (21:41)
[2019-08-29] MEDS ORDERED: ACETAMINOPHEN EXTRA STRENGTH 500 MG TABLET ONE (21:57)
== END 2019-08-29 22:21 | disposition home or self-care (01) ==
LOC: EDH 20:18
DX: O20.0 Threatened abortion (principal); O23.41 Unspecified infection of urinary tract in pregnancy, first trimester; O26.891 Other specified pregnancy related conditions, first trimester; R03.0 Elevated blood-pressure reading, without diagnosis of hypertension; Z3A.01 Less than 8 weeks gestation of pregnancy
CPT/HCPCS: 36415; 76801; 80053; 81001; 84702; 85025; 85610; 85730; 87077 ×2; 87088; 87186 ×2; 96374; 99284; J0696

== ENCOUNTER 2019-08-31 20:40 | Emergency (ER) | payer OTHER | END 2019-08-31 22:46 | disposition home or self-care (01) | LOC: EDH 20:40 | DX: O03.4 Incomplete spontaneous abortion without complication (principal); Z90.49 Acquired absence of other specified parts of digestive tract; Z3A.08 8 weeks gestation of pregnancy | CPT/HCPCS: 76801 ==

== ENCOUNTER 2019-09-02 17:57 | Observation (INO) | payer MEDICAID, OTHER ==
[~2019-09-02] VITALS: Ht 154.9 cm; Wt 74.4 kg
[2019-09-02 18:18] LABS: BASOPHILS % (AUTO) 0.5 % (0.0-5.0); EOSINOPHILS % (AUTO) 1.7 % (0.0-8.0); HEMATOCRIT 31.6 % (36-48); LYMPHOCYTES % (AUTO) 17.2 % (21.0-51.0); MEAN CORPUSCULAR HEMOGLOBIN 31.1 pg (27.0-33.0); MEAN CORPUSCULAR HGB CONC 34.8 g/dL (32.0-36.0); MEAN CORPUSCULAR VOLUME 89.3 fL (79-99); MONOCYTES % (AUTO) 6.5 % (3.0-13.0); NEUTROPHILS % (AUTO) 73.8 % (40.0-77.0); PLATELET COUNT (AUTO) 213 K/uL (130-400); RED BLOOD CELL COUNT(AUTO) 3.54 MIL/uL (4.00-5.50); RED CELL DISTRIBUTION WIDTH 12.3 % (11.0-15.5)
[2019-09-02] MEDS ORDERED: ONDANSETRON HCL 4 MG/2 ML VIAL ONE (18:28)
[2019-09-02] MEDS ORDERED: MORPHINE SULFATE 4 MG/1ML SYG ONE ×3 (18:29→23:12)
[2019-09-02 18:36] LABS: ALBUMIN 3.5 g/dL (3.5-5.0); BILIRUBIN,TOTAL 0.3 mg/dL (0.2-1.0); CREATININE 0.8 mg/dL (0.5-1.5); TOTAL PROTEIN, SERUM 6.9 g/dL (6.0-8.3)
[2019-09-02] MEDS ORDERED: POTASSIUM BICARB/CIT AC 25 MEQ TABLET.EFF ONE (20:03)
[2019-09-02] MEDS ORDERED: MAGNESIUM 2GM PREMIX 50ML 50 ML IV ONE (20:41)
[2019-09-02 23:25] VITALS: BP 109/58
--- NOTE | 2019-09-02 23:25 | NUR ---
Received patient from ED via stretcher; Patient was accompanied by medical affairs manager. she has a saline locked on her left hand gauge 18. Plan of care discussed with patient verbalizes understanding. Elaine care done by Patti Camacho RN noted small blood clots as big as a ping pong ball.
[2019-09-03] VITALS (10 sets, daily range): BP systolic 90–133; BP diastolic 40–85
[2019-09-03] MEDS: OXYTOCIN-LR 20 UNITS/1000 ML 1,000 ML IV SCH ×2 (00:07→07:46)
[2019-09-03] MEDS ORDERED: OXYTOCIN IV SCH (00:45)
[2019-09-03] MEDS ORDERED: USP IV SCH (00:45)
[2019-09-03] MEDS ORDERED: LACTATED RINGERS IV SCH (00:45)
[2019-09-03] MEDS ORDERED: PROMETHAZINE HCL 25 MG/ML 1ML AMPULE IM PRN (01:15)
[2019-09-03] MEDS ORDERED: MEPERIDINE-PF 50 MG/ML SYG IM PRN (01:15)
--- NOTE | 2019-09-03 01:15 | NUR ---
Communication: Dr. Robb called by telephone informed that patient wants pain medication, received orders to give Demerol 50 mg and Phenergan 25 mg IM prn for pain.
--- NOTE | 2019-09-03 01:30 | NUR ---
Activity: Patient assisted by Patti Camacho CNA to the bathroom to void. Urine output 500 ml noted with big blood clots as big as an adult fist with christophe colored urine. Patient felt dizzy was made to inhalealcohol swab. She was assisted back in bed vias wheelchair.
--- NOTE | 2019-09-03 01:40 | NUR ---
QBL was 164.
--- NOTE | 2019-09-03 03:50 | NUR ---
Elaine care done by Patti Camacho CNA no clots noted QBL -136
--- NOTE | 2019-09-03 07:00 | NUR ---
Patient; Patient voided and pass out blood clot as big as a fist with moderate amount of Lochia Rubra QBL of 427. Elaine care done by Patti Camacho CNA.
--- NOTE | 2019-09-03 07:55 | NUR ---
DR. ATKINSON IN ROOM WITH PATIENT DISCUSSING POC. QUESTIONS INVITED AND ANSWERED.
--- NOTE | 2019-09-03 08:00 | NUR ---
DR. ATKINSON IN TO SEE PATIENT AND INDICATED PATIENT WOULD BE GOING HOME AFTER D&C AND TOLERATING PO AND VOIDING..
--- NOTE | 2019-09-03 09:30 | NUR ---
PERICARE DONE AND PATIENT HAD PASSED CLOTS AND STILL HAVING VAGINAL BLEEDING. QBL WAS 159.
[2019-09-03] MEDS ORDERED: PROPOFOL 10 MG/ML 20ML VIAL IV ONE (10:02)
[2019-09-03] MEDS ORDERED: FENTANYL CITRATE PF 50 MCG/1 ML 2ML VIAL ONE ×2 (10:02→10:21)
[2019-09-03] MEDS ORDERED: ONDANSETRON HCL 4 MG/2 ML VIAL ONE (10:02)
[2019-09-03] MEDS ORDERED: DEXAMETHASONE SOD PHOSPHATE 10MG/ML 1ML VIAL ONE (10:02)
[2019-09-03] MEDS ORDERED: LIDOCAINE PF 2% 5ML ABBOJECT ONE (10:02)
[2019-09-03] MEDS ORDERED: MIDAZOLAM HCL 1 MG/ML 2ML VIAL ONE (10:02)
--- NOTE | 2019-09-03 10:05 | NUR ---
WAS TAKEN VIA BED TO L/D FOR DILATATION AND CURETTAGE. PATIENT HAD EMESIS OF 50CC PRIOR TO BEING TRANSFERED.
--- NOTE | 2019-09-03 11:40 | NUR ---
RETURNED FROM SURGERY. PATIENT STABLE AND NO VAGINAL BLEEDING NOTED. VERY DROWSY AND PIV INFUSING WELL. WATER GIVEN TO PATIENT AND TOLERATED FLUIDS WELL.
--- NOTE | 2019-09-03 12:11 | NUR ---
SS REFERRAL Sw met with pt who is afmitted for spontaneous . Pt states she was 2 months with her 5 child. Pt has 3 sons 17,16,13,and 2yro daughter. Pt states father of sons in [place] and father of daughter in [place]. Pt states she had only known father of this 1 week before this became , and bearly knows him. Pt states she is undocumented, uses her 1yro SSD to pay rent and cable, does odd jobs to pay bills. Pt has no government assistance at this time . Pt reports occasional marijuana use for pain. Pt reports she needs surgery to remove a kidney and liver problems as well, but has never followed up with a PCP or to get co indigent to cover medical needs. Pt states pain is severe and marijuana helps her get her mind off the pain. Pt states she stopped smoking the day she found she was ( at 1 month). Pt also reports hx with CPS and states case was closed. Pt denies hx of abuse, mental health or legal issues. SW contact Nya Lawson, CPS grease refining supervisor to verify CPS hx. New report to be made if pt has no open case.
--- NOTE | 2019-09-03 15:20 | NUR ---
PATIENT DANGLED AT BEDSIDE BEFORE AMBULATING TO RESTROOM. PATIENT ABLE TO VOID 300ML OF RED TINGED URINE. NO PROBLEMS AMBULATING.
--- NOTE | 2019-09-03 17:05 | NUR ---
PATIENT LEFT UNIT VIA WHEELCHAIR WITH BELONGINGS IN HAND. PERSONAL VEHICLE USED FOR TRANSPORTATION. NO COMPLAINTS OR CONCERNS ADDRESSED FROM PATIENT ON DISCHARGE.
== END 2019-09-03 17:05 | disposition home or self-care (01) ==
LOC: EDH 17:57 → EDHIP 17:58 → INTOOBSV 17:58 → WSH 23:25
DX: O03.4 Incomplete spontaneous abortion without complication (principal); Z87.442 Personal history of urinary calculi; Z90.49 Acquired absence of other specified parts of digestive tract
CPT/HCPCS: 36415; 76801; 80053; 83735; 84702; 85025; 86850; 86900; 86901; 88305; 96365; 96366; 96372; G0378; J1100; J2001; J2175; J2250; J2270; J2405; J2550; J2590; J2704; J3010; J3475; J7120

== ENCOUNTER 2019-09-05 17:39 | Inpatient (IN) | payer MEDICAID, OTHER ==
[~2019-09-05] VITALS: Ht 154.9 cm; Wt 74.2 kg
[2019-09-05 18:15] LABS: BASOPHILS % (AUTO) 0.5 % (0.0-5.0); EOSINOPHILS % (AUTO) 0.5 % (0.0-8.0); LYMPHOCYTES % (AUTO) 21.2 % (21.0-51.0); MEAN CORPUSCULAR HEMOGLOBIN 31.4 pg (27.0-33.0); MEAN CORPUSCULAR HGB CONC 34.2 g/dL (32.0-36.0); MEAN CORPUSCULAR VOLUME 91.8 fL (79-99); MONOCYTES % (AUTO) 6.6 % (3.0-13.0); NEUTROPHILS % (AUTO) 70.2 % (40.0-77.0); NUCLEATED RED BLOOD CELLS 0.3 % (0.0-0.19); PLATELET COUNT (AUTO) 198 K/uL (130-400); RED BLOOD CELL COUNT(AUTO) 1.59 MIL/uL (4.00-5.50); RED CELL DISTRIBUTION WIDTH 13.6 % (11.0-15.5); WHITE BLOOD COUNT (AUTO) 6.1 K/uL (4.8-10.8)
[2019-09-05 18:31] LABS: CREATININE 0.9 mg/dL (0.5-1.5)
[2019-09-05 18:35] LABS: ALBUMIN 3.6 g/dL (3.5-5.0); BILIRUBIN,TOTAL 0.2 mg/dL (0.2-1.0)
[2019-09-05 18:38] LABS: HEMATOCRIT 14.6 % (36-48)
[2019-09-05] MEDS ORDERED: ACETAMINOPHEN EXTRA STRENGTH 500 MG TABLET ONE (18:39)
[2019-09-05] MEDS ORDERED: POTASSIUM BICARB/CIT AC 25 MEQ TABLET.EFF ONE (19:01)
[2019-09-05] MEDS ORDERED: LEVOFLOXACIN 500 MG/D5W 100 ML 100 ML ONE (19:01)
[2019-09-05] MEDS ORDERED: ONDANSETRON HCL 4 MG/2 ML VIAL ONE (19:16)
[2019-09-05] MEDS ORDERED: KETOROLAC TROMETHAMINE 15MG/ML ONE (19:16)
[2019-09-05] MEDS ORDERED: ZOSYN 3.375GM+NS 50ML 50 ML IV ONE (19:23)
[2019-09-05] MEDS ORDERED: MORPHINE SULFATE 4 MG/1ML SYG ONE (20:20)
[2019-09-05 20:41] LABS: HCG,QUAL RESULT POSITIVE (NEGATIVE)
[2019-09-05 20:44] LABS: APPEARANCE,URINE CLOUDY (CLEAR); BILIRUBIN,URINE NEGATIVE (NEGATIVE); COLOR,URINE YELLOW (YELLOW); GLUCOSE, URINE (UA) NEGATIVE (NEGATIVE); KETONES,URINE 40 mg/dL (NEGATIVE); LEUKOCYTE ESTERASE ,URINE LARGE (NEGATIVE); NITRATE,URINE NEGATIVE (NEGATIVE); OCCULT BLOOD,URINE MODERATE (NEGATIVE); PH,URINE 8.5 (5.0-8.0); PROTEIN,URINE 30 mg/dL (NEGATIVE); UROBILINOGEN,URINE 0.2 mg/dL (0.2-1.0)
[2019-09-05 20:47] LABS: AMPHET/METH SCREEN,URINE NEGATIVE (NEGATIVE); BARBITURATE SCREEN, URINE NEGATIVE (NEGATIVE); BENZODIAZEPINES SCREEN,URINE NEGATIVE (NEGATIVE); CANNABINOID SCREEN,URINE POSITIVE (NEGATIVE); COCAINE SCREEN,URINE NEGATIVE (NEGATIVE); OPIATE SCREEN,URINE POSITIVE (NEGATIVE); PHENCYCLIDINE SCREEN,URINE NEGATIVE (NEGATIVE)
[2019-09-05 20:50] LABS: BACTERIA,URINE Moderate /HPF (None Seen); MUCUS,URINE Few LPF (None Seen); SQUAMOUS EPITHELIAL CELL,UR Few /HPF (0-2)
[2019-09-05] MEDS: ZOSYN 3.375GM+NS 50ML 50 ML IV SCH (22:15)
[2019-09-05] MEDS ORDERED: ONDANSETRON HCL 4 MG/2 ML VIAL IV PRN (22:15)
[2019-09-05] MEDS ORDERED: LEVOFLOXACIN 500 MG/D5W 100 ML 100 ML IV SCH (22:15)
[2019-09-05] MEDS ORDERED: MAGNESIUM 2GM PREMIX 50ML 50 ML IV PRN (23:00)
[2019-09-05] MEDS ORDERED: POTASSIUM CHLORIDE 20MEQ/100ML 100 ML IV PRN (23:00)
[2019-09-05] MEDS ORDERED: LIDOCAINE HCL-MPF 1% 2ML VIAL IV PRN (23:00)
[2019-09-05] MEDS ORDERED: PHARMACY COMMUNICATION MISC SCH (23:45)
--- NOTE | 2019-09-06 01:00 | NUR ---
ADMISSION 0037 RECEIVED ED REPORT FROM LYUDMILA LEY RN 0100 PT ADMITTED RM 227 FROM ER BELONGINGS AT BEDSIDE CELL PHONE/ACID LOADER NO HOME MEDS TAKEN. ADMISSION DATABASE COMPLETE. NO DISTRESS NOTED WILL CONTINUE TO MONITOR PT 0145 COVID RESULT NEGATIVE FOIL STAMP OPERATOR ALEIDA MADE AWARE BED ASSIGNED REPORT GIVEN 0215 QUIANA CRAVEN PT TRANSFERRED RM 417 BELONGINGS AT BEDSIDE
[2019-09-06] MEDS: LACTATED RINGERS 1000ML 1,000 ML IV SCH ×3 (01:03→18:36)
[2019-09-06 01:09] VITALS: BP 121/84
[2019-09-06] MEDS: MORPHINE SULFATE 2 MG/ML 1ML SYG IVP PRN ×6 (01:10→22:55)
[2019-09-06 02:30] VITALS: BP 110/77
--- NOTE | 2019-09-06 02:30 | NUR ---
TRANSFERRED FROM 227 TO 417 VIA WHEELCHAIR WITH PERSONAL BELONGINGS. ALERT AND VERY RESPONSIVE, AOX4. PAIN TO ABDOMEN IS JUST BEARABLE PT REPORTED. CONTINUE PLAN OF CARE. NO APPARENT DISTRESS NOTED. NEEDS ATTENDED. MAINTAINED ON NPO FOR POSSIBLE PROCEDURE IN AM. PT. VERBALIZED UNDERSTANDING. KEPT MONITORED.
[2019-09-06 04:53] LABS: BASOPHILS % (AUTO) 0.5 % (0.0-5.0); EOSINOPHILS % (AUTO) 2.1 % (0.0-8.0); LYMPHOCYTES % (AUTO) 40.6 % (21.0-51.0); MEAN CORPUSCULAR HEMOGLOBIN 31.6 pg (27.0-33.0); MEAN CORPUSCULAR HGB CONC 34.4 g/dL (32.0-36.0); MEAN CORPUSCULAR VOLUME 91.9 fL (79-99); MONOCYTES % (AUTO) 8.6 % (3.0-13.0); NEUTROPHILS % (AUTO) 47.7 % (40.0-77.0); PLATELET COUNT (AUTO) 116 K/uL (130-400); RED BLOOD CELL COUNT(AUTO) 2.09 MIL/uL (4.00-5.50); RED CELL DISTRIBUTION WIDTH 13.6 % (11.0-15.5); WHITE BLOOD COUNT (AUTO) 4.3 K/uL (4.8-10.8)
[2019-09-06 04:55] LABS: HEMATOCRIT 19.2 % (36-48)
[2019-09-06 04:59] LABS: INR 0.99 (0.85-1.15); PARTIAL THROMBOPLASTIN TIME 22.6 SEC (26.3-35.5); PROTHROMBIN TIME 10.7 SEC (9.6-11.6)
--- NOTE | 2019-09-06 05:03 | NUR ---
Hgb: 6.6 and Hct: 19.2 Informed on-call hospitalist ( PATRICK Conde) thru phone with an order to transfuse 1 unit of PRBC to run for 4hrs. Also, to stop main IVF ( LR ) while blood transfusion is on-going.
[2019-09-06 05:31] LABS: ALBUMIN 2.6 g/dL (3.5-5.0); BILIRUBIN,DIRECT 0.1 mg/dL (0.0-0.3); BILIRUBIN,TOTAL 0.3 mg/dL (0.2-1.0); CREATININE 0.8 mg/dL (0.5-1.5); MAGNESIUM 1.7 mg/dL (1.80-2.40); POTASSIUM 3.8 mmol/L (3.5-5.1); THYROID STIMULATING HORMONE 3.94 uIU/mL (0.36-3.74); TOTAL PROTEIN, SERUM 5.3 g/dL (6.0-8.3); TROPONIN I 0.12 ng/mL (0.00-0.06)
[2019-09-06] MEDS ORDERED: SODIUM CHLORIDE 0.9% 250 ML IV ONE (05:36)
[2019-09-06] MEDS: ZOSYN 3.375GM+NS 50ML 50 ML IV SCH ×3 (06:19→20:53)
[2019-09-06 08:00] VITALS: BP 114/74
[2019-09-06] MEDS: FAMOTIDINE/PF 20 MG/2 ML VIAL IV SCH ×2 (09:55→20:53)
[2019-09-06 12:00] VITALS: BP 125/88
[2019-09-06 16:00] VITALS: BP 118/79
[2019-09-06] MEDS ORDERED: EPOETIN ALFA 10,000 UNIT/ML VIAL SQ SCH (18:15)
[2019-09-06] MEDS ORDERED: COMPOUND IV MISC 1 EACH IVSOLN MISC PRN (18:30)
--- NOTE | 2019-09-06 20:30 | NUR ---
MD DR HARDY IN MAKING ROUNDS. NEW ORDERS GIVEN, PLEASE REFER TO CPOE. WILL CARRYOUT ORDERS.
[2019-09-06 20:40] VITALS: BP 134/78
[2019-09-06 20:48] LABS: HEMATOCRIT 24.9 % (36-48)
--- NOTE | 2019-09-06 20:53 | NUR ---
MEDS SHIFT ASSESSMENT DONE, PLEASE REFER TO CHART. AMBULATORY WITH OUT DIZZINESS AND NO ASSIST. STILL WITH VERY SCANT VAGINAL BLEEDING. PROVIDED CLEAR LIQUIDS TO TAKE FOR NOW. DUE MEDS ADMINISTERED, TOLERATED WELL. PLACED COMFORTABLY IN BED. ENCOURAGED TO REST AND SLEEP. CALL LIGHT WITHIN REACH. WILL MONITOR PT. Addendum: 09/06/19 at 2237 by MELISSA WOODSON RN RN Amended: Links added.
[2019-09-06] MEDS ORDERED: IRON SUCROSE COMPLEX 100 MG in SODIUM CHLORIDE 0.9% 50 ML IV SCH (21:00)
--- NOTE | 2019-09-06 22:53 | NUR ---
PAIN PT CALLS AND IS MOANING, CLAIMS OF ABDOMINAL CRAMPING. PT REQUESTED FOR PAIN MEDS SO SHE COULD SLEEP. MEDICATED WITH MORPHINE IV. KEPT RESTED AND COMFORTABLE IN BED. WILL RE-ASSESS PT.
[2019-09-07 00:01] VITALS: BP 127/77
--- NOTE | 2019-09-07 02:00 | NUR ---
ROUNDS PT FAIRLY ASLEEP, NO DISTRESS NOTED. KEPT UNDISTURBED FOR NOW. WILL MONITOR PT. CALL LIGHT WITHIN REACH.
[2019-09-07 04:11] VITALS: BP 127/76
[2019-09-07] MEDS: ZOSYN 3.375GM+NS 50ML 50 ML IV SCH ×2 (04:53→13:36)
--- NOTE | 2019-09-07 05:00 | NUR ---
MEDS PT AWAKENS WHEN SURGERY CONSULTANT ENTERS ROOM. CLAIMS OF ABDOMINAL PAINS. DUE ZOSYN IV HUNG. MEDICATED WITH MORPHINE IV FOR PAIN. KEPT COMFORTABLE IN BED. WILL RE-ASSESS PT.
[2019-09-07] MEDS: MORPHINE SULFATE 2 MG/ML 1ML SYG IVP PRN (05:01)
[2019-09-07 05:14] LABS: HEMATOCRIT 24.8 % (36-48); MEAN CORPUSCULAR HEMOGLOBIN 30.8 pg (27.0-33.0); MEAN CORPUSCULAR HGB CONC 34.3 g/dL (32.0-36.0); MEAN CORPUSCULAR VOLUME 89.9 fL (79-99); NUCLEATED RED BLOOD CELLS 0.4 % (0.0-0.19); RED BLOOD CELL COUNT(AUTO) 2.76 MIL/uL (4.00-5.50); RED CELL DISTRIBUTION WIDTH 14.9 % (11.0-15.5); WHITE BLOOD COUNT (AUTO) 4.9 K/uL (4.8-10.8)
[2019-09-07 05:36] LABS: CREATININE 0.9 mg/dL (0.5-1.5); CRP QUANTITATIVE 7.6 mg/L (0.00-9.0); MAGNESIUM 2.1 mg/dL (1.80-2.40); PHOSPHORUS 3.5 mg/dL (2.5-4.9); POTASSIUM 3.6 mmol/L (3.5-5.1)
[2019-09-07] MEDS ORDERED: POTASSIUM CHLORIDE 20 MEQ ERTAB PO PRN (05:45)
[2019-09-07] MEDS ORDERED: POTASSIUM CHLORIDE 10% ELIXIR 20 MEQ/15 ML UDCUP PO PRN (05:45)
[2019-09-07 07:30] VITALS: BP 128/75
[2019-09-07] MEDS ORDERED: FAMOTIDINE 20MG TAB 20 MG TAB PO SCH (09:00)
[2019-09-07] MEDS ORDERED: CLIN300C9 PO (09:52)
[2019-09-07] MEDS ORDERED: FERR325T22 PO (09:52)
--- NOTE | 2019-09-07 15:31 | NUR ---
CM NOTE PATIENT DISCHARGED HOME, NO NEEDS VERBALIZED BY NURSING STAFF. Addendum: 09/07/19 at 1532 by DAINA FORD RN CM Amended: Links added.
== END 2019-09-07 13:20 | disposition home or self-care (01) | DRG 779 ==
LOC: EDH 17:39 → EDHIP 17:40 → 4CH 09-06 00:02 → 2DH 09-06 00:17 → 4CH 09-06 02:07
PROVIDERS: ADMIT Internal Medicine; ATTEND Internal Medicine
PROC: 30233N1 Transfusion of Nonautologous Red Blood Cells into Peripheral Vein, Percutaneous Approach (ICD-10-PCS; principal; 2019-09-05)
DX: O03.37 Sepsis following incomplete spontaneous abortion (principal); A41.9 Sepsis, unspecified organism; D62 Acute posthemorrhagic anemia; N20.0 Calculus of kidney; O03.38 Urinary tract infection following incomplete spontaneous abortion; Z20.828 Contact with and (suspected) exposure to other viral communicable diseases; F19.10 Other psychoactive substance abuse, uncomplicated; Z83.3 Family history of diabetes mellitus; Z82.5 Family history of asthma and other chronic lower respiratory diseases; Z82.0 Family history of epilepsy and other diseases of the nervous system; Z82.49 Family history of ischemic heart disease and other diseases of the circulatory system
CPT/HCPCS: 36415; 36430; 71045; 74176; 76801; 80048; 80053; 80061; 80076; 80305; 81001; 81025; 82550; 83605; 83735; 83874; 84100; 84145; 84443; 84484; 84702; 85014; 85018; 85025; 85027; 85378; 85610; 85730; 86140; 86850; 86900; 86901; 86922; 87040; 87088; 87804; 88305; 96365; 96366; 96372; 99291; G0378; J0885; J1100; J1756; J1885; J1956; J2001; J2175; J2250; J2270; J2405; J2543; J2550; J2590; J2704; J3010; J3475; J3490; J7050; J7120; P9016

== ENCOUNTER 2020-03-20 11:45 | Emergency (ER) | payer MEDICAID, OTHER ==
[~2020-03-20 11:45] MED LIST changes: +CLIN300C9 PO; +FERR325T22 PO; -PNV91TAB6 PO
[2020-03-20 12:48] LABS: APPEARANCE,URINE TURBID (CLEAR); BILIRUBIN,URINE NEGATIVE (NEGATIVE); COLOR,URINE YELLOW (YELLOW); GLUCOSE, URINE (UA) NEGATIVE (NEGATIVE); HCG,QUAL RESULT POSITIVE (NEGATIVE); KETONES,URINE NEGATIVE (NEGATIVE); LEUKOCYTE ESTERASE ,URINE LARGE (NEGATIVE); NITRATE,URINE NEGATIVE (NEGATIVE); OCCULT BLOOD,URINE MODERATE (NEGATIVE); PROTEIN,URINE 30 mg/dL (NEGATIVE); UROBILINOGEN,URINE 0.2 mg/dL (0.2-1.0)
[2020-03-20 13:06] LABS: BACTERIA,URINE Many /HPF (None Seen); SQUAMOUS EPITHELIAL CELL,UR Rare /HPF (0-2); WBC,URINE TNTC /HPF (0-1)
[2020-03-20 14:11] LABS: BASOPHILS % (AUTO) 0.8 % (0.0-5.0); EOSINOPHILS % (AUTO) 5.5 % (0.0-8.0); HEMATOCRIT 37.7 % (36-48); LYMPHOCYTES % (AUTO) 23.8 % (21.0-51.0); MEAN CORPUSCULAR HEMOGLOBIN 28.2 pg (27.0-33.0); MEAN CORPUSCULAR HGB CONC 32.4 g/dL (32.0-36.0); MEAN CORPUSCULAR VOLUME 87.3 fL (79-99); MONOCYTES % (AUTO) 8.8 % (3.0-13.0); NEUTROPHILS % (AUTO) 60.8 % (40.0-77.0); PLATELET COUNT (AUTO) 243 K/uL (130-400); RED BLOOD CELL COUNT(AUTO) 4.32 MIL/uL (4.00-5.50); RED CELL DISTRIBUTION WIDTH 13.9 % (11.0-15.5)
[2020-03-20 14:23] LABS: CREATININE 0.7 mg/dL (0.5-1.5); POTASSIUM 3.8 mmol/L (3.5-5.1)
[2020-03-20 14:33] LABS: ALBUMIN 3.2 g/dL (3.5-5.0); BILIRUBIN,TOTAL 0.2 mg/dL (0.2-1.0); TOTAL PROTEIN, SERUM 7.4 g/dL (6.0-8.3)
== END 2020-03-20 16:09 | disposition home or self-care (01) ==
LOC: EDH 11:45
DX: O26.891 Other specified pregnancy related conditions, first trimester (principal); R10.9 Unspecified abdominal pain; Z3A.01 Less than 8 weeks gestation of pregnancy
CPT/HCPCS: 36415; 76801; 80053; 81001; 81025; 83690; 84702; 85025; 87088

== ENCOUNTER 2020-04-11 14:52 | Emergency (ER) | payer MEDICAID, OTHER ==
[~2020-04-11 14:52] MED LIST changes: +CLIN-141 PO; -CLIN300C9 PO
[2020-04-11] MEDS ORDERED: ACETAMINOPHEN 325 MG TAB ONE (15:26)
[2020-04-11] MEDS ORDERED: METOCLOPRAMIDE 10 MG/2 ML VIAL ONE (15:26)
[2020-04-11] MEDS ORDERED: 0.9%NACL 1000ML 1,000 ML IV ONE (15:26)
[2020-04-11 15:28] LABS: APPEARANCE,URINE CLOUDY (CLEAR); BILIRUBIN,URINE NEGATIVE (NEGATIVE); COLOR,URINE YELLOW (YELLOW); GLUCOSE, URINE (UA) NEGATIVE (NEGATIVE); KETONES,URINE NEGATIVE (NEGATIVE); LEUKOCYTE ESTERASE ,URINE LARGE (NEGATIVE); NITRATE,URINE NEGATIVE (NEGATIVE); OCCULT BLOOD,URINE MODERATE (NEGATIVE); PH,URINE 8.5 (5.0-8.0); PROTEIN,URINE 100 mg/dL (NEGATIVE)
[2020-04-11 15:31] LABS: HCG,QUAL RESULT POSITIVE (NEGATIVE)
[2020-04-11 15:41] LABS: BACTERIA,URINE Moderate /HPF (None Seen); MUCUS,URINE Few LPF (None Seen); SQUAMOUS EPITHELIAL CELL,UR Few /HPF (0-2); WBC,URINE 26-50 /HPF (0-1)
[2020-04-11 16:22] LABS: BASOPHILS % (AUTO) 0.8 % (0.0-5.0); EOSINOPHILS % (AUTO) 5.7 % (0.0-8.0); LYMPHOCYTES % (AUTO) 13.5 % (21.0-51.0); MEAN CORPUSCULAR HEMOGLOBIN 28.9 pg (27.0-33.0); MEAN CORPUSCULAR HGB CONC 33.6 g/dL (32.0-36.0); MEAN CORPUSCULAR VOLUME 85.9 fL (79-99); MONOCYTES % (AUTO) 12.6 % (3.0-13.0); NEUTROPHILS % (AUTO) 67.2 % (40.0-77.0); PLATELET COUNT (AUTO) 246 K/uL (130-400); RED BLOOD CELL COUNT(AUTO) 4.19 MIL/uL (4.00-5.50); WHITE BLOOD COUNT (AUTO) 5.3 K/uL (4.8-10.8)
[2020-04-11 17:33] LABS: CREATININE 0.7 mg/dL (0.5-1.5)
[2020-04-11 17:37] LABS: ALBUMIN 3.2 g/dL (3.5-5.0); BILIRUBIN,TOTAL 0.2 mg/dL (0.2-1.0); TOTAL PROTEIN, SERUM 7.6 g/dL (6.0-8.3)
[2020-04-11] MEDS ORDERED: MORPHINE 2 MG SYG ONE (18:43)
== END 2020-04-11 21:30 | disposition home or self-care (01) ==
LOC: EDH 14:52
DX: O26.891 Other specified pregnancy related conditions, first trimester (principal); R10.84 Generalized abdominal pain; O21.8 Other vomiting complicating pregnancy; Z3A.09 9 weeks gestation of pregnancy; Z90.49 Acquired absence of other specified parts of digestive tract
CPT/HCPCS: 36415; 76705; 76770; 76801; 80053; 81001; 81025; 83690; 85025; 87088; 96361; 96374; 96375; 99285; J2765; J7030; 93005

== ENCOUNTER 2020-11-01 16:22 | Inpatient (IN) | payer MEDICAID, OTHER ==
[~2020-11-01] VITALS: Ht 154.9 cm; Wt 83.5 kg
[~2020-11-01 16:22] MED LIST changes: -CLIN-141 PO; +CLIN300C10 PO
[2020-11-01 16:30] VITALS: BP 106/46
[2020-11-01 17:53] LABS: APPEARANCE,URINE TURBID (CLEAR); BILIRUBIN,URINE SMALL (NEGATIVE); COLOR,URINE YELLOW (YELLOW); GLUCOSE, URINE (UA) NEGATIVE (NEGATIVE); KETONES,URINE 5 mg/dL (NEGATIVE); LEUKOCYTE ESTERASE ,URINE LARGE (NEGATIVE); NITRATE,URINE NEGATIVE (NEGATIVE); OCCULT BLOOD,URINE MODERATE (NEGATIVE); PROTEIN,URINE 100 mg/dL (NEGATIVE)
[2020-11-01] MEDS ORDERED: LACTATED RINGERS 1000ML 1,000 ML IV PRN (18:00)
[2020-11-01 18:06] LABS: HEMATOCRIT 31.4 % (36-48); MEAN CORPUSCULAR HEMOGLOBIN 29.1 pg (27.0-33.0); MEAN CORPUSCULAR HGB CONC 33.8 g/dL (32.0-36.0); MEAN CORPUSCULAR VOLUME 86.3 fL (79-99); RED BLOOD CELL COUNT(AUTO) 3.64 MIL/uL (4.00-5.50); WHITE BLOOD COUNT (AUTO) 6.6 K/uL (4.8-10.8)
[2020-11-01 18:17] LABS: BACTERIA,URINE Rare /HPF (None Seen); SQUAMOUS EPITHELIAL CELL,UR Rare /HPF (0-2); WBC,URINE >100 /HPF (0-1)
[2020-11-01 18:17] LABS: CREATININE 0.7 mg/dL (0.5-1.5)
[2020-11-01 18:19] LABS: INR 0.95 (0.85-1.15); PROTHROMBIN TIME 10.4 SEC (9.6-11.6)
[2020-11-01 18:21] LABS: PARTIAL THROMBOPLASTIN TIME 24.9 SEC (26.3-35.5)
[2020-11-01 18:22] LABS: ALBUMIN 2.5 g/dL (3.5-5.0); BILIRUBIN,TOTAL 0.3 mg/dL (0.2-1.0); TOTAL PROTEIN, SERUM 7.2 g/dL (6.0-8.3); URIC ACID 5.2 mg/dL (2.6-7.2)
[2020-11-01 19:07] LABS: AMPHET/METH SCREEN,URINE NEGATIVE (NEGATIVE); BARBITURATE SCREEN, URINE NEGATIVE (NEGATIVE); BENZODIAZEPINES SCREEN,URINE NEGATIVE (NEGATIVE); CANNABINOID SCREEN,URINE NEGATIVE (NEGATIVE); COCAINE SCREEN,URINE NEGATIVE (NEGATIVE); OPIATE SCREEN,URINE NEGATIVE (NEGATIVE); PHENCYCLIDINE SCREEN,URINE NEGATIVE (NEGATIVE)
[2020-11-01] MEDS ORDERED: NALOXONE HCL 0.4 MG/1 ML ML IV PRN (19:30)
[2020-11-01] MEDS ORDERED: EPHEDRINE SULFATE 50 MG/ML AMPULE IVP PRN (19:30)
[2020-11-01] MEDS ORDERED: LACTATED RINGERS 500 ML 500 ML IV PRN (19:30)
[2020-11-02] MEDS: PROMETHAZINE HCL 25 MG/ML 1ML AMPULE IM PRN ×2 (00:03→14:49)
[2020-11-02] MEDS: MEPERIDINE-PF 50 MG/ML SYG IVP PRN ×2 (00:06→14:49)
[2020-11-02] MEDS: LACTATED RINGERS 1000ML 1,000 ML IV PRN ×2 (01:49→11:34)
[2020-11-02] MEDS ORDERED: OXYTOCIN-LR 20 UNITS/1000 ML 1,000 ML IV SCH (04:00)
[2020-11-02 08:53] LABS: RAPID PLASMA REAGIN NONREACTIVE (NONREACTIVE)
[2020-11-02] MEDS ORDERED: FENTANYL CITRATE PF 50 MCG/1 ML 2ML VIAL ONE (16:02)
[2020-11-02] MEDS ORDERED: ROPIVACAINE 0.2% 100ML VIAL 100 ML EP SCH (16:30)
[2020-11-02] MEDS ORDERED: MISOPROSTOL 200 MCG TABLET ONE (16:45)
[2020-11-02] MEDS: OXYTOCIN-LR 20 UNITS/1000 ML 1,000 ML IV SCH ×2 (16:55→18:00)
[2020-11-02] MEDS ORDERED: OXYTOCIN 10 USP UNITS/ML ONE (16:57)
[2020-11-02] MEDS ORDERED: BENZOCAINE/LANOLIN/ALOE VERA 60 ML AEROSOL TP PRN (18:00)
[2020-11-02] MEDS ORDERED: LANOLIN 30GM OINTMENT TP PRN (18:00)
[2020-11-02] MEDS ORDERED: DIPH,PERTUSS(ACELL),TET VAC/PF 0.5 ML VIAL IM PRN (18:00)
[2020-11-02] MEDS ORDERED: MEASLES/MUMPS/RUBELLA VACCINE, LIVE 0.5 ML/VIAL SQ PRN (18:00)
[2020-11-02] MEDS ORDERED: WITCH HAZEL 1 PAD TP PRN (18:00)
[2020-11-02] MEDS ORDERED: ACETAMINOPHEN 325 MG TAB PO PRN (18:00)
[2020-11-02 19:16] VITALS: BP 145/82
[2020-11-02] MEDS: ACETAMINOPHEN WITH CODEINE 1 TAB TAB PO PRN (19:54)
[2020-11-02] MEDS: DOCUSATE SODIUM 100 MG CAP PO SCH (21:06)
[2020-11-02 23:21] VITALS: BP 120/71
[2020-11-03] MEDS: ACETAMINOPHEN WITH CODEINE 1 TAB TAB PO PRN ×2 (01:30→17:30)
[2020-11-03 03:49] VITALS: BP_SYST 105; BP_SYST 94; BP_DIAS 50; BP_DIAS 63
[2020-11-03 06:37] LABS: MEAN CORPUSCULAR HEMOGLOBIN 29.7 pg (27.0-33.0); MEAN CORPUSCULAR HGB CONC 34.2 g/dL (32.0-36.0); RED BLOOD CELL COUNT(AUTO) 2.76 MIL/uL (4.00-5.50); RED CELL DISTRIBUTION WIDTH 13.1 % (11.0-15.5); WHITE BLOOD COUNT (AUTO) 6.6 K/uL (4.8-10.8)
[2020-11-03 07:25] VITALS: BP 107/56
[2020-11-03] MEDS: DOCUSATE SODIUM 100 MG CAP PO SCH ×2 (09:14→20:04)
[2020-11-03] MEDS: IBUPROFEN 600 MG TABLET PO PRN ×2 (09:15→20:04)
[2020-11-03 11:35] VITALS: BP 103/52
[2020-11-03 12:12] LABS: HEPATITIS Bs ANTIGEN SCREEN P Negative (Negative)
[2020-11-03 16:31] VITALS: BP 121/69
[2020-11-03 19:48] VITALS: BP 126/79
[2020-11-03 23:17] VITALS: BP 106/59
[2020-11-04 03:01] VITALS: BP 97/57
[2020-11-04] MEDS: IBUPROFEN 600 MG TABLET PO PRN ×2 (03:28→08:29)
[2020-11-04 07:09] VITALS: BP 118/74
[2020-11-04] MEDS: DOCUSATE SODIUM 100 MG CAP PO SCH (08:28)
[2020-11-04 11:12] VITALS: BP 90/55
== END 2020-11-04 14:05 | disposition home or self-care (01) | DRG 806 ==
LOC: EDH 16:22 → LDH 16:23 → OBSVTOIN 16:23 → WSH 11-02 19:05
PROVIDERS: ADMIT Obstetrics & Gynecology; ATTEND Obstetrics & Gynecology
PROC: 10E0XZZ Delivery of Products of Conception, External Approach (ICD-10-PCS; principal; 2020-11-02)
PROC: 0UQGXZZ Repair Vagina, External Approach (ICD-10-PCS; 2020-11-02)
PROC: 3E0P7VZ Introduction of Hormone into Female Reproductive, Via Natural or Artificial Opening (ICD-10-PCS; 2020-11-02)
PROC: 3E0R3BZ Introduction of Anesthetic Agent into Spinal Canal, Percutaneous Approach (ICD-10-PCS; 2020-11-02)
PROC: 00HU33Z Insertion of Infusion Device into Spinal Canal, Percutaneous Approach (ICD-10-PCS; 2020-11-02)
PROC: 3E0234Z Introduction of Serum, Toxoid and Vaccine into Muscle, Percutaneous Approach (ICD-10-PCS; 2020-11-02)
PROC: 3E0134Z Introduction of Serum, Toxoid and Vaccine into Subcutaneous Tissue, Percutaneous Approach (ICD-10-PCS; 2020-11-02)
DX: O60.14X0 Preterm labor third trimester with preterm delivery third trimester, not applicable or unspecified (principal); O72.1 Other immediate postpartum hemorrhage; Z37.0 Single live birth; O71.4 Obstetric high vaginal laceration alone; O14.04 Mild to moderate pre-eclampsia, complicating childbirth; Z3A.36 36 weeks gestation of pregnancy; Z23 Encounter for immunization
CPT/HCPCS: 36415; 80053; 80305; 81001; 84550; 85027; 85384; 85610; 85730; 86592; 86701; 86850; 86900; 86901; 87088; 87340; 87390; A4314; G0378; J2175; J2550; J2590; J3010; J7120

== ENCOUNTER 2024-03-09 15:25 | Emergency (ER) | payer MEDICAID ==
[~2024-03-09] VITALS: Ht 154.9 cm; Wt 81.6 kg
[2024-03-09 16:31] LABS: BASOPHILS # (AUTO) 0.04 K/uL (0.00-0.20); BASOPHILS % (AUTO) 0.7 % (0.0-5.0); EOSINOPHILS # (AUTO) 0.21 K/uL (0.00-0.70); EOSINOPHILS % (AUTO) 3.7 % (0.0-8.0); IMMATURE GRANULOCYTE ABSOLUTE 0.02 K/uL (0-1); LYMPHOCYTES % (AUTO) 17.9 % (21.0-51.0); MEAN CORPUSCULAR HEMOGLOBIN 27.4 pg (27.0-33.0); MEAN CORPUSCULAR HGB CONC 32.3 g/dL (32.0-36.0); MONOCYTES # (AUTO) 0.5 K/uL (0.1-1.0); MONOCYTES % (AUTO) 8.2 % (3.0-13.0); NEUTROPHILS # (AUTO) 3.9 K/uL (1.8-7.7); NEUTROPHILS % (AUTO) 69.1 % (40.0-77.0); PLATELET COUNT (AUTO) 226 K/uL (130-400); RED BLOOD CELL COUNT(AUTO) 4.12 MIL/uL (4.00-5.50); RED CELL DISTRIBUTION WIDTH 14.6 % (11.0-15.5); WHITE BLOOD COUNT (AUTO) 5.6 K/uL (4.8-10.8)
[2024-03-09 16:49] LABS: APPEARANCE,URINE TURBID (CLEAR); BILIRUBIN,URINE NEGATIVE (NEGATIVE); COLOR,URINE LIGHT-ORANGE (YELLOW); GLUCOSE, URINE (UA) NEGATIVE (NEGATIVE); KETONES,URINE NEGATIVE (NEGATIVE); LEUKOCYTE ESTERASE ,URINE 500 Leu/uL (NEGATIVE); NITRATE,URINE 2+ (NEGATIVE); OCCULT BLOOD,URINE LARGE (NEGATIVE); PROTEIN,URINE 200 mg/dL (NEGATIVE); UROBILINOGEN,URINE 0.2 mg/dL (0.2-1.0)
[2024-03-09 16:51] LABS: CREATININE 0.8 mg/dL (0.5-1.0); POTASSIUM 3.4 mmol/L (3.5-5.1)
[2024-03-09 16:56] LABS: ALBUMIN 3.5 g/dL (3.5-5.0); BILIRUBIN,TOTAL 0.5 mg/dL (0.2-1.0); TOTAL PROTEIN, SERUM 8.1 g/dL (6.0-8.3)
[2024-03-09 17:06] LABS: HCG,QUALITATIVE URINE NEGATIVE (NEGATIVE)
[2024-03-09 17:12] LABS: MUCUS,URINE FEW LPF (None Seen); RBC,URINE TNTC /HPF (0-1); SQUAMOUS EPITHELIAL CELL,UR MANY /HPF (0-2); WBC CLUMP MANY /HPF (0-1); WBC,URINE TNTC /HPF (0-1); YEAST,URINE BUDDING MANY /HPF (None Seen)
[2024-03-09] MEDS: cefTRIAXone 1G VIAL IM ONE (17:45)
[2024-03-09] MEDS: ketOROlac 15MG/ML VIAL (15MG/ML) IM ONE (17:46)
--- NOTE | 2024-03-09 17:47 | HMCIMG ---
Exam Type: CT ABDOMEN/PELVIS W/O CONTRAST Clinical Information: Right flank pain Comparison: None CT Dose Index (CTDI): 10.20 mGy Dose Length Product (DLP): 530.00 total mGy-cm PROTOCOL: Routine noncontrast helical scanning of the abdomen and pelvis was performed at 5mm collimation. Findings: Left kidney shows residual collecting system contrast. This must represent recent contrast injection. The right kidney shows a staghorn calculus is present noted. In addition, there is significant right perinephric stranding which could represent fornix rupture. The stranding appears to extend to the inferior tip of the liver and there is a second calcification which appears outside of the renal collecting system on the right side, projecting close to the right liver lobe inferior tip. It is unclear whether this represents a migrated fragment of renal system calculus now projecting under the liver silhouette. Please correlate. The lung bases are clear. The stomach is unremarkable. It shows no wall thickening. No gross ulceration is seen. It is not overly distended. There are no surrounding inflammatory changes. No wall lesions are identified to suggest cancer. The spleen is unremarkable. It is not enlarged. The pancreas shows normal anatomy. It is not fatty replaced. It shows no lesions. The pancreatic duct is not dilated. The gallbladder is unremarkable. It shows no cholelithiasis. The gallbladder wall is normal in thickness. There is no pericholecystic fluid. The is no acute or chronic inflammation noted. The adrenal glands are unremarkable. There is no enlargement. No lesions are noted. The liver is unremarkable. It shows no focal masses. The appendix is unremarkable. It shows no evidence of inflammation. No appendicolith is seen. The small bowel is unremarkable. There is no evidence of dilatation to suggest obstruction. No evidence of adynamic ileus is seen. There is no small bowel wall thickening to suggest enteritis. The colon is unremarkable. The urinary bladder is unremarkable. There is no wall thickening to suggest tumor or inflammation. There are no intraluminal calculi. There are no diverticula. There is no evidence of chronic bladder outlet obstruction. There is no evidence of urinary bladder distention to suggest urinary retention. The other pelvic structures are unremarkable. The bony and vascular structures are unremarkable for the patient's age. IMPRESSION: The right kidney shows a staghorn calculus is present noted. In addition, there is significant right perinephric stranding which could represent fornix rupture. The stranding appears to extend to the inferior tip of the liver and there is a second calcification which appears outside of the renal collecting system on the right side, projecting close to the right liver lobe inferior tip. It is unclear whether this represents a migrated fragment of renal system calculus now projecting under the liver silhouette. Please correlate. This study was performed using dose reduction techniques to include automated exposure control and/or adjustment of the mA and/or kV according to patient size.
--- NOTE | 2024-03-09 18:10 | NUR ---
SPOKE TO DOUGIE WITH [facility] AT [phone]. SHE WILL CALL ME BACK IN REGARDS TO TRANSFER.
--- NOTE | 2024-03-09 18:23 | NUR ---
GEORGE ZAMORA SPOKE TO DR. POPE (UROLOGY) IN REGARDS TO PT. DR. POPE ACCEPTED PT A CONSULT.
--- NOTE | 2024-03-09 19:17 | ERN ---
General Chief Complaint: Flank Pain Stated Complaint: RIGHT SIDED PAIN Time Seen by MD: 15:39 Time Seen by Midlevel: 15:39 Source: patient History of Present Illness Initial Comments 31-year-old female presents to the ED due to right flank pain. She reports this is a chronic pain due to history of kidney stones. Patient was previously seeing a urologist but discontinued after losing her insurance. States she has been having nausea, vomiting, pain with urination but denies any fever, diarrhea or further associated symptoms. Denies further significant medical history. Allergies: Coded Allergies: No Known Drug Allergies (Unverified Allergy, Unknown, 09/10/16) Home Meds No Active Prescriptions or Reported Meds Past Medical History Past Medical History: Kidney Stone, Other Medical History Other: KIDNEY STONES Past Surgical History: Appendectomy Female( History) LMP: Feb 24, 2024 : 6 Para: 4 Aborts: 1 ROS Dictation Constitutional: Negative for fever,chills, and weight loss Eyes: Negative for injury, pain,redness, and discharge ENT: Negative for injury,pain or swelling Cardiovascular: Negative for chest pain, palpitations, and edema Respiratory: Negative for shortness of breath, cough, and wheezing, Abdomen/GI: Positive for right flank pain radiating to the right lower abdomen, nausea, vomiting Negative for diarrhea, and constipation Back: Negative for injury : Positive for painful urination Negative for bleeding or discharge MS/Extremity: Negative for injury and deformity Skin: Negative for rash, and discoloration Neuro: Negative for headache, weakness, numbness, tingling, and seizure Psych: Negative for suicide ideation, homicidal ideation, and hallucinations Physical Exam Physical Exam Dictation General: awake, alert, no acute distress Head/Face: Normocephalic, atraumatic Eyes: normal conjunctiva ENT: oral cavity clear, oral mucosa moist Cardiovascular: RRR, normal S1/S2 Respiratory: CTAB, no respiratory distress, no rales or wheezes Abdomen: Soft, mild right lower and suprapubic tenderness, non-distended, no guarding or rebound. Back: Right CVA tenderness Skin: Warm, dry, normal turgor, no rash MS/Extremity: Pulses equal, no cyanosis, neurovascular intact, FROM Neuro: COAx4, GCS 15, no neurological deficits, normal gait, Psych: Normal behavior, mood, and affect normal Results Laboratory and Microbiology Lab and Micro Result Laboratory Tests Test 03/09/24 16:05 03/09/24 16:23 Urine Color LIGHT-ORANGE (YELLOW) Urine Appearance TURBID (CLEAR) Urine pH 6.0 (5.0-8.0) Urine Specific [place] 1.024 (1.001-1.031) Urine Protein 200 mg/dL (NEGATIVE) H Urine Glucose (UA) NEGATIVE mg/dL (NEGATIVE) Urine Ketones NEGATIVE mg/dL (NEGATIVE) Urine Occult Blood LARGE (NEGATIVE) H Urine Nitrate 2+ (NEGATIVE) H Urine Bilirubin NEGATIVE mg/dL (NEGATIVE) Urine Urobilinogen 0.2 mg/dL (0.2-1.0) Urine Leukocyte Esterase 500 Angie/uL (NEGATIVE) H Urine RBC TNTC /HPF (0-1) H Urine WBC TNTC /HPF (0-1) H Urine WBC Clumps (Auto) MANY /HPF (0-1) Urine Squamous Epithelial Cells MANY /HPF (0-2) Urine Bacteria None /HPF (None Seen) Urine Yeast MANY /HPF (None Seen) Urine HCG, Qualitative NEGATIVE (NEGATIVE) White Blood Count 5.6 K/uL (4.8-10.8) Red Blood Count 4.12 MIL/uL (4.00-5.50) Hemoglobin 11.3 g/dL (12.0-16.0) L Hematocrit 35.0 % (36-48) L Mean Corpuscular Volume 85.0 fL (79-99) Mean Corpuscular Hemoglobin 27.4 pg (27.0-33.0) Mean Corpuscular Hemoglobin Concent 32.3 g/dL (32.0-36.0) Red Cell Distribution Width 14.6 % (11.0-15.5) Platelet Count 226 K/uL (130-400) Mean Platelet Volume 10.2 fL (7.5-10.5) Immature Granulocyte % (Auto) 0.4 % (0-1) Neutrophils (%) (Auto) 69.1 % (40.0-77.0) Lymphocytes (%) (Auto) 17.9 % (21.0-51.0) L Monocytes (%) (Auto) 8.2 % (3.0-13.0) Eosinophils (%) (Auto) 3.7 % (0.0-8.0) Basophils (%) (Auto) 0.7 % (0.0-5.0) Neutrophils # (Auto) 3.9 K/uL (1.8-7.7) Lymphocytes # (Auto) 1.0 K/uL (1.0-4.8) Monocytes # (Auto) 0.5 K/uL (0.1-1.0) Eosinophils # (Auto) 0.21 K/uL (0.00-0.70) Basophils # (Auto) 0.04 K/uL (0.00-0.20) Absolute Immature Granulocyte (auto 0.02 K/uL (0-1) Nucleated Red Blood Cells 0.0 % (0.0-0.19) Sodium Level 136 mmol/L (136-145) Potassium Level 3.4 mmol/L (3.5-5.1) L Chloride Level 101 mmol/L (101-111) Carbon Dioxide Level 28 mmol/L (21-32) Blood Urea Nitrogen 7 mg/dL (7-18) Creatinine 0.8 mg/dL (0.5-1.0) Glomerular Filtration Rate Calc 97 mL/min (>90) Random Glucose 127 mg/dL (70-105) H Total Calcium 8.5 mg/dL (8.5-10.1) Total Bilirubin 0.5 mg/dL (0.2-1.0) Aspartate Amino Transf (AST/SGOT) 14 U/L (10-37) Alanine Aminotransferase (ALT/SGPT) 18 U/L (12-78) Alkaline Phosphatase 96 U/L (50-136) Total Protein 8.1 g/dL (6.0-8.3) Albumin 3.5 g/dL (3.5-5.0) Labs Reviewed?: Yes EKG/XRAY/US/CT/MRI CT Scan Comment REASON: Right flank pain ORDERING PHYSICIAN: NOAH WEBER PROCEDURE: ABD PEL WO - CT ABDOMEN/PELVIS W/O CONTRAST Exam Type: CT ABDOMEN/PELVIS W/O CONTRAST Clinical Information: Right flank pain Comparison: None CT Dose Index (CTDI): 10.20 mGy Dose Length Product (DLP): 530.00 total mGy-cm PROTOCOL: Routine noncontrast helical scanning of the abdomen and pelvis was performed at 5mm collimation. Findings: Left kidney shows residual collecting system contrast. This must represent recent contrast injection. The right kidney shows a staghorn calculus is present noted. In addition, there is significant right perinephric stranding which could represent fornix rupture. The stranding appears to extend to the inferior tip of the liver and there is a second calcification which appears outside of the renal collecting system on the right side, projecting close to the right liver lobe inferior tip. It is unclear whether this represents a migrated fragment of renal system calculus now projecting under the liver silhouette. Please correlate. The lung bases are clear. The stomach is unremarkable. It shows no wall thickening. No gross ulceration is seen. It is not overly distended. There are no surrounding inflammatory changes. No wall lesions are identified to suggest cancer. The spleen is unremarkable. It is not enlarged. The pancreas shows normal anatomy. It is not fatty replaced. It shows no lesions. The pancreatic duct is not dilated. The gallbladder is unremarkable. It shows no cholelithiasis. The gallbladder wall is normal in thickness. There is no pericholecystic fluid. The is no acute or chronic inflammation noted. The adrenal glands are unremarkable. There is no enlargement. No lesions are noted. The liver is unremarkable. It shows no focal masses. The appendix is unremarkable. It shows no evidence of inflammation. No appendicolith is seen. The small bowel is unremarkable. There is no evidence of dilatation to suggest obstruction. No evidence of adynamic ileus is seen. There is no small bowel wall thickening to suggest enteritis. The colon is unremarkable. The urinary bladder is unremarkable. There is no wall thickening to suggest tumor or inflammation. There are no intraluminal calculi. There are no diverticula. There is no evidence of chronic bladder outlet obstruction. There is no evidence of urinary bladder distention to suggest urinary retention. The other pelvic structures are unremarkable. The bony and vascular structures are unremarkable for the patient's age. IMPRESSION: The right kidney shows a staghorn calculus is present noted. In addition, there is significant right perinephric stranding which could represent fornix rupture. The stranding appears to extend to the inferior tip of the liver and there is a second calcification which appears outside of the renal collecting system on the right side, projecting close to the right liver lobe inferior tip. It is unclear whether this represents a migrated fragment of renal system calculus now projecting under the liver silhouette. Please correlate. This study was performed using dose reduction techniques to include automated exposure control and/or adjustment of the mA and/or kV according to patient size. MDM MDM: Differential diagnosis: UTI, pyelonephritis, nephrolithiasis Rationale: 31-year-old female presents to the ED due to right flank pain. She reports this is a chronic pain due to history of kidney stones. Patient was previously seeing a urologist but discontinued after losing her insurance. States she has been having nausea, vomiting, pain with urination but denies any fever, diarrhea or further associated symptoms. Denies further significant medical history. Labs obtained are nonspecific, UA indicates a urinary tract infection. CT abdomen and pelvis indicates staghorn calculus, right perinephric stranding which could represent fornix rupture, 2nd calcification appears outside the renal collecting system on the right side, stating it may represent a migrated fragment of renal calculus projecting under the liver silhouette. Per physical examination patient has CVA tenderness on the right side. Administered ketorolac, Rocephin, and morphine in the ED. the patient was educated on findings and diagnosis. Patient verbalized understanding and agreed with decision of admission. Patient needed to be transferred due to not having Urology consult available at [facility] [place]. Urologist Dr. Hoagn at [facility] stated patient needed a nephrostomy tube placed by IR. IR not available at [facility] therefore urologist Dr. Hogan accepted the transfer. Case discussed with hospitalist Dr. Venegas at [facility] who accepted admission. There are no social concerns with this patient. I independently interpreted the test that were performed, results were reviewed by me and considered findings on radiology if ordered. Medical management and examination interpretation discussions were had by me with other qualified healthcare professionals as indicated for the patient's care. ED Course Orders Procedure Category Date Status Time Cbc With Differential LAB 03/09/24 Complete 15:32 Comprehensive LAB 03/09/24 Complete Metabolic Panel 15:32 Urinalysis LAB 03/09/24 Complete W/Microscopic 15:32 ,Urine Test LAB 03/09/24 Complete 15:32 Ct Abdomen/Pelvis W/O CT 03/09/24 Resulted Contrast 17:07 Culture Urine DANDY 03/09/24 In Process 17:10 Ceftriaxone 1g Vial PHA 03/09/24 Complete (Rocephine 1g Inj) 18:00 Ketorolac PHA 03/09/24 Complete Tromethamine 15mg/Ml 18:00 Morphine 4mg Syg PHA 03/09/24 In Process (Morphine 4mg Syg) 20:00 Current Medications Medications (Trade) Dose Ordered Sig/Alan Route PRN Reason Start Time Stop Time Status Last Admin Dose Admin Ceftriaxone Sodium (ROCEphine 1G INJ) 1 gm ONCE ONCE IM 03/09/24 18:00 03/09/24 18:01 DC 03/09/24 17:45 Ketorolac Tromethamine (toRADol) 15 mg ONCE ONCE IM 03/09/24 18:00 03/09/24 18:01 DC 03/09/24 17:46 Morphine Sulfate (morPHINE 4MG SYG) 4 mg ONCE ONCE IVP 03/09/24 20:00 03/09/24 20:01 03/09/24 19:37 Vital Signs Date Time Temp Pulse Resp B/P (MAP) Pulse Ox O2 Delivery O2 Flow Rate FiO2 03/09/24 16:56 97.5 100 16 120/75 97 Room Air* 0 21 03/09/24 15:36 98.6 79 16 134/91 99 Room Air 0 Critical Care Note Critical Time: 30 minutes Comments Critical Care Procedure Note Authorized and Performed by: Total critical care time: Approximately 36 minutes Due to a high probability of clinically significant, life threatening deterioration, the patient required my highest level of preparedness to int ervene emergently and I personally spent this critical care time directly and personally managing the patient. This critical care time included obtaining a history; examining the patient; pulse oximetry; ordering and review of studies; arranging urgent treatment with development of a management plan; evaluation of patient's response to treatment; frequent reassessment; and, discussions with other providers. This critical care time was performed to assess and manage the high probability of imminent, life-threatening deterioration that could result in multi-organ failure. It was exclusive of separately billable procedures and treating other patients and teaching time. Please see MDM section and the rest of the note for further information on patient assessment and treatment. DX & DISP Disposition: Transfer Decision to Admit Date: Mar 09, 2024 Departure Impression: Primary Impression: Staghorn calculus Additional Impression: Urinary tract infection Condition: Stable Scripts No Active Prescriptions or Reported Meds Referrals: SELF,REFERRAL (PCP) I participated in the following activities of this patient's care: For this patient encounter, I reviewed the PA or [place] documentation, treatment plan, and medical decision making. I did not have [id number] time with this patient. I will sign as the reviewing DrRodney And agree with the treatment plan and disposition. NOAH WEBER Mar 09, 2024 19:17
[2024-03-09] MEDS: morPHINE 4 MG SYG IVP ONE (19:37)
--- NOTE | 2024-03-09 20:30 | NUR ---
TRANSFER PT. ACCEPTED BY JONATHAN CEDILLO MD @ [id number] FOR TRANSFER [place] [facility] [place]ED ASSIGN[place] AT THIS TIME: ROOM 1519-1. REPORT: [id number].
[2024-03-09 21:11] VITALS: BP 131/75; PULSE 68; RESP 16; TEMP 98.3; O2SAT 99
--- NOTE | 2024-03-09 21:45 | NUR ---
[facility] CALLED FOR TRANSPORT
--- NOTE | 2024-03-09 22:11 | NUR ---
REPORT PROVIDED TO [place] [facility] [place]
== END 2024-03-09 22:11 | disposition short-term general hospital (02) ==
LOC: EDH 15:25
DX: N20.0 Calculus of kidney (principal); N39.0 Urinary tract infection, site not specified; Z90.49 Acquired absence of other specified parts of digestive tract
CPT/HCPCS: 99291; 74176; 96374; 80053; 85025; 87086; 81001; 81025; 36415; 96372 ×2; J0696; J2270; J1885